=== PATIENT | female | born 2005 | race Caucasian/White ===

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

== ENCOUNTER 2025-01-01 06:51 | Day surgery (SDC) | payer OTHER, SELFPAY ==
[2025-01-01] VITALS (17 sets, daily range): BP systolic 92–157; BP diastolic 42–92; PULSE 60–92; RESP 17–20; TEMP 36.6–43; O2SAT 96–100; BMI 25.8
--- NOTE | 2025-01-01 06:59 | ED_ITS ---
Discharge Plan Disposition Chief Complaint: Abdominal Pain Prescriptions Prescriptions: No Action No Known Home Medications Referrals Follow up/Referrals: Provider,Referral, [Primary Care Provider] - See instructions Clinical Impressions Clinical Impression: Ovarian torsion Abdominal pain Qualifiers: Abdominal location: right lower quadrant Qualified Code(s): R10.31 - Right lower quadrant pain Instructions Patient Instructions: DI for Acute Abdominal Pain Print Language Print Language: Latvian Discharge ED Provider: Onel Shelton General Adult HPI General Chief complaint: Abdominal Pain Stated complaint: sharp pain in abd Time Seen by Provider: 01/01/25 06:57 Mode of Arrival: Ambulatory Source of Information: Patient Limitations: No Limitations History of Present Illness HPI narrative: This is a 19-year-old female with a history of complex right-sided ovarian cyst status post diagnostic laparoscopy on 04/27/2024 who presents with severe right lower quadrant and suprapubic abdominal pain. States that her pain began about 30 minutes ago while having intercourse with her boyfriend. Denies any vaginal bleeding. Reports dysuria. Reports nausea but denies vomiting. States that her pain is located to the right lower side and over her surgical incision around her umbilicus. Related Data Home Medications ?Medication ?Instructions ?Recorded ?Confirmed No Known Home Medications 01/01/25 01/01/25 Allergies Allergy/AdvReac Type Severity Reaction Status Date / Time amoxicillin Allergy Unknown Verified 01/01/25 07:23 allergy reaction hydromorphone (From Dilaudid) Allergy Difficulty Verified 04/27/24 08:01 Breathing morphine Allergy Unknown Verified 01/01/25 07:23 allergy reaction PFSH PFS Disclaimer: The information contained in this section may have been updated after the patient was seen, as this information can be updated by other users. Medical History (Updated 01/01/25 @ 09:37 by Lissy Bland DO) Acute abdominal pain in left lower quadrant Conversion disorder Abnormal uterine bleeding Right ovarian cyst RLQ abdominal pain Abdominal pain Pelvic pain Surgical History S/P laparoscopy History of surgery on arm History of tonsillectomy Family History Other No significant family history Social History Smoking Status: Current every day smoker tobacco type: e-cigarettes alcohol intake: never substance use type: denies use current occupational status: other Travel in the last 8 weeks: None Have you lived/traveled outside US in past 30 days?: No Contact w/someone who lives/traveled outside US past 30 days?: No Exposure to someone with infectious disease in past 14 days?: No Do you have a fever (greater than 100.4 F or 38 C)?: No Have you tested positive for COVID-19: No Exposed to someone with COVID-19 in past 14 days?: No Do you have a sore throat?: No Do you have a cough?: No Do you have any weakness?: No Do you have any diarrhea?: No Are you experiencing any unusual bleeding?: No Do you have any muscle aches/pain?: No Do you have any abdominal pain?: Yes Are you experiencing loss of taste or smell?: No Other Medical History Have you received the Flu Vaccine for this season: No Have you received the Pneumonia Vaccine: No ROS Obtained: Yes All systems reviewed & no additional complaints except as documented Physical Exam General General appearance: alert and in no apparent distress Eye Eye exam: Present normal appearance, PERRL and EOMI Respiratory Respiratory exam: Present normal lung sounds bilaterally; Absent respiratory distress Cardiovascular Cardiovascular exam: Present regular rate and normal rhythm Abdominal Exam Abdominal exam: Present soft and tenderness (Right lower quadrant, suprapubic); Absent distention, guarding or rebound Extremities Exam Extremities exam: Present normal inspection Neurological Exam Neurological exam: Present alert and oriented X3 Skin Skin exam: Present warm and dry Medical Decision Making Medical Records Medical records reviewed: Yes I reviewed the patient's medical records. Screening: Per USPSTF and CDC recommendations, given the prevalence of disease in our region, it is our hospital?s policy to screen for HIV and viral Hepatitis for all patients aged 18 and over and those with ongoing risk factors. MR Comment: Operative note and discharge summary from DIRECTOR PATIENT ACCOUNTING on 04/27/2024 notable for patient's past medical history as noted above. No evidence of torsion on exam. Normal flow on ultrasound prior to this. Emanuel Inquiry Pt receiving controlled substance: No Vital Signs: 01/01/25 07:15 01/01/25 08:29 01/01/25 08:41 Temperature 97.8 F 98.5 F 98.4 F Temperature Source Oral Oral Oral Pulse Rate 60 Pulse Rate [Radial] 71 61 Respiratory Rate 18 20 18 Blood Pressure 135/79 Blood Pressure [Right Arm] 107/77 L 144/92 H Blood Pressure Mean [Right Arm] 87 109 Blood Pressure Source [Right Arm] Automatic Cuff Blood Pressure Position Supine Blood Pressure Position [Right Arm] Sitting Supine 02 Sat by Pulse Oximetry 99 98 98 Oxygen Delivery Method Room Air Room Air Room Air 01/01/25 09:00 01/01/25 09:30 Temperature Temperature Source Pulse Rate 60 68 Pulse Rate [Radial] Respiratory Rate Blood Pressure 133/91 H 120/76 Blood Pressure [Right Arm] Blood Pressure Mean [Right Arm] Blood Pressure Source [Right Arm] Blood Pressure Position Blood Pressure Position [Right Arm] 02 Sat by Pulse Oximetry 99 99 Oxygen Delivery Method Room Air Room Air Lab Data Lab Results 01/01/25 07:12: WBC 7.5, RBC 4.38, Hgb 12.8, Hct 37.2, MCV 84.9, MCH 29.2, MCHC 34.4, RDW 12.6, Plt Count 309, MPV 10.0, Neut % (Auto) 43.8, Lymph % (Auto) 43.2, [place] % (Auto) 10.7 H, Eos % (Auto) 1.3, Baso % (Auto) 0.7, Neut # (Auto) 3.3, Lymph # (Auto) 3.2, [place] # (Auto) 0.8, Eos # (Auto) 0.1, Baso # (Auto) 0.1, Sodium 138, Potassium 4.1, Chloride 107, Carbon Dioxide 22, Anion Gap 13.1, BUN 10, Creatinine 0.50 L, Estimated Creat Clear 207, Estimated GFR 159, Est GFR ( Amer) 192, Glucose 98, Calcium 8.8, Total Bilirubin 0.4, AST 20, ALT 14, Alkaline Phosphatase 56, Total Protein 7.3, Albumin 4.4, Globulin 2.9, Albumin/Globulin Ratio 1.5, Lipase 43, Serum HCG, Qual Negative, HCV Ab GALLO w/Rflx PCR Qn Negative 01/01/25 07:12 01/01/25 07:12 Orders (Tests/Meds): ED MEDICATIONS Discontinued Medications Generic Name Dose Route Start Last Admin Trade Name Freq PRN Reason Stop Dose Admin Lactated Ringer's 500 mls @ 999 mls/hr 01/01/25 07:05 01/01/25 07:30 Lactated Ringer's 500ml IV 01/01/25 07:35 999 mls/hr .Q31M ONE Administration Ketorolac Tromethamine 15 mg 01/01/25 07:07 01/01/25 07:30 Ketorolac 30mg/Ml Vial IV 01/01/25 07:08 15 mg ONCE ONE Administration Morphine Sulfate 4 mg 01/01/25 08:32 01/01/25 08:38 Morphine 2mg/Ml Syringe IV 01/01/25 08:33 4 mg ONCE ONE Administration Morphine Sulfate 4 mg 01/01/25 09:33 01/01/25 09:38 Morphine 4mg/Ml Syringe IV 01/01/25 09:34 4 mg ONCE ONE Administration Ondansetron HCl 4 mg 01/01/25 07:05 01/01/25 07:31 Ondansetron 4mg/2ml Vial IV 01/01/25 07:06 4 mg ONCE ONE Administration ORDERS Category Date Time Status Type and Screen Stat BBK 01/01/25 09:15 Received US transvaginal Stat Exams 01/01/25 07:05 Completed CBC w/Auto Diff [Complete Blood Count Auto Diff] Stat Lab 01/01/25 07:12 Completed CMP [Comprehensive Metabolic Panel] Stat Lab 01/01/25 07:12 Completed HCG Qualitative, Serum Stat Lab 01/01/25 07:12 Completed HIV Combo Stat Lab 01/01/25 07:12 Received Hepatitis C Ab Qual. W/ RFX Stat Lab 01/01/25 07:12 Completed Lipase Stat Lab 01/01/25 07:12 Completed Urinalysis and Microscopic Stat Lab 01/01/25 07:50 Received Medical Decision Narrative: In summary, this 19-year-old female with a history of complex right-sided ovarian cyst status post diagnostic laparoscopy on 04/27/2024 presents to the emergency department today with right lower quadrant and suprapubic abdominal pain that began about 30 minutes prior to arrival. On initial evaluation patient is afebrile, hemodynamically stable, nontoxic-appearing, abdomen soft without peritoneal signs however tender to the right lower quadrant/suprapubic area. Differential diagnosis includes but is not limited to ovarian torsion, ectopic , appendicitis, UTI. Based on these concerns, I ordered CBC, CMP, lipase, qualitative beta-hCG, UA, transvaginal ultrasound. Considered CT scan with IV contrast, however will evaluate with ultrasound and laboratory workup first. Patient received 500 cc of lactated Ringer's, Toradol, Zofran for treatment. Labs personally reviewed demonstrate unremarkable CBC and CMP, normal lipase, negative test. UA shows []. TVUS personally interpreted demonstrates enlarged left ovary compared to right with ovarian cyst present. Measured at 52 cc compared to 6 cc on the right. No flow seen. Concerning for L sided torsion. Immediately consulted DIRECTOR PATIENT ACCOUNTING for evaluation for emergent surgical intervention. Taken to OR emergently. Critical Care Critical Care Time Critical Care Time: No
--- NOTE | 2025-01-01 07:05 | US_ITS ---
PROCEDURE INFORMATION: Exam: US Duplex Artery or Vein of the Abdominal and/or Reproductive Organs, Limited Ovaries Exam date and time: 01/01/2025 7:51 AM Age: 19 years old Clinical indication: Pelvic pain; Additional info: R/O torsion, rlq pain, HX R sided torsion last yr TECHNIQUE: Imaging protocol: Real-time duplex ultrasound scan of the arterial or venous flow with martinez scale, color Doppler flow and spectral waveform analysis with image documentation. Limited duplex exam focused on the ovaries. Duplex exam was performed to evaluate for torsion and other vascular conditions. COMPARISON: US TRANSVAGINAL 04/26/2024 3:19 PM FINDINGS: Right ovary/adnexa: Peak systolic velocity in the right ovary 12 cm/s. Left ovary/adnexa: No flow in the left ovary consistent with torsion.. IMPRESSION: 1. No flow in the left ovary consistent with torsion.. 2. Peak systolic velocity in the right ovary 12 cm/s. THIS REPORT CONTAINS FINDINGS THAT MAY BE CRITICAL TO PATIENT CARE. The findings were verbally communicated via telephone conference with DEL Dhillon at 859 AM EDT on 01/01/2025. The findings were acknowledged and understood. PROCEDURE INFORMATION: Exam: US Pelvis, Transvaginal, Non-Obstetric Exam date and time: 01/01/2025 7:51 AM Age: 19 years old Clinical indication: Pelvic pain; Additional info: R/O torsion, rlq pain, HX R sided torsion last yr TECHNIQUE: Imaging protocol: Real-time transvaginal pelvic (non-obstetric) ultrasound with image documentation. Transvaginal imaging was used for better evaluation of the endometrium, adnexa, and/or cervix. COMPARISON: US TRANSVAGINAL 04/26/2024 3:19 PM FINDINGS: Uterus: Endometrium measures 9.6 mm. Uterus 7.3 x 4.2 x 5.1 cm total volume 81 cc Right ovary/adnexa: Right ovary 2.9 x 2.3 x 1.7 cm total volume 6.1 cc Left ovary/adnexa: No flow in the left ovary consistent with torsion. Large hemorrhagic cyst contains low-level echoes in the left ovary.. It measures 4.07 x 4.7 x 4.1 cm.. Left ovary 5.6 x 4 x 4.4 cm total volume 52.6 cc Urinary bladder: Urinary bladder is limited. Intraperitoneal space: No free fluid. IMPRESSION: 1. No flow in the left ovary consistent with torsion. 2. Large hemorrhagic cyst contains low-level echoes in the left ovary.. It measures 4.07 x 4.7 x 4.1 cm..
[2025-01-01 07:20] LABS: Basophils # 0.1 K/mm3 (0-0.2); Basophils % 0.7 % (0.1-2.0); Eosinophils # 0.1 K/mm3 (0.0-0.4); Eosinophils % 1.3 % (0.1-12.0); Hematocrit 37.2 % (37.0-47.0); Hemoglobin 12.8 g/dL (12.2-16.2); Lymphocytes # 3.2 K/mm3 (0.7-4.5); Lymphocytes % 43.2 % (10-50); Mean Corpuscular HGB Conc 34.4 g/dL (31.8-35.4); Mean Corpuscular Hemoglobin 29.2 pg (27.0-31.2); Mean Corpuscular Volume 84.9 fl (81-99); Monocytes # 0.8 K/mm3 (0.1-1.0); Monocytes % 10.7 % (1.7-9.3); Neutrophils # 3.3 K/mm3 (1.8-7.8); Neutrophils % 43.8 % (37.0-80.0); Nucleated Red Blood Cells # 0 10^3/uL; Nucleated Red Blood Cells % 0 %; Platelet Count 309 K/mm3 (142-424); Red Blood Count 4.38 M/mm3 (4.20-5.40); Red Cell Distribution Width 12.6 % (11.5-17.5); Red Cell Distribution Width-SD 38.8 fL; White Blood Count 7.5 K/mm3 (4.5-13.0)
[2025-01-01 07:29] LABS: Albumin Level 4.4 g/dl (3.5-5.0); Chloride 107 mmol/L (98-107)
--- NOTE | 2025-01-01 07:29 | PC.NURSE ---
Patient attempted to urinate prior to arrival to treatment room. Patient states she was unable to void. Patient again encouraged prior to medication administration and again stated she could not go at this time. Informed the patient that we would need this specimen as soon as possible. Acknowledged understanding.
[2025-01-01 07:30] LABS: Potassium 4.1 mmoL/L (3.5-5.1); Sodium 138 mmol/L (136-145)
[2025-01-01] MEDS: KETOROLAC 30MG/ML VIAL 15 MG IV (07:30)
[2025-01-01] MEDS: RINGERS SOLUTION,LACTATED 500 ML 999 ML IV (07:30)
[2025-01-01] MEDS: ONDANSETRON 4MG/2ML VIAL 4 MG IV (07:31)
--- NOTE | 2025-01-01 07:31 | PC.NURSE ---
Ultrasound legal entity controller. Contacted via phone. Currently en route.
[2025-01-01 07:32] LABS: Alanine Aminotransferase 14 U/L (12-78); Anion Gap 13.1 mEq/L (5-15); Aspartate Amino Transferase 20 U/L (14-36); Blood Urea Nitrogen 10 mg/dl (7-17); Carbon Dioxide 22 mmol/L (22.0-30.0); Creatinine Clearance Estimated 207 mL/min (50-200); Estimated Glomerular Filt Rate 159 ml/min (>60); GFR (African American) 192 ML/MIN (>60)
[2025-01-01 07:33] LABS: Albumin/Globulin Ratio 1.5 (1.1-1.8); Alkaline Phosphatase 56 U/L (38-126); Bilirubin,Total 0.4 mg/dl (0.2-1.3); Calcium 8.8 mg/dl (8.4-10.2); Globulin 2.9 g/dL (1.3-3.2); Glucose 98 mg/dl (74-100); Total Protein,Serum 7.3 g/dl (6.3-8.2)
--- NOTE | 2025-01-01 07:52 | PC.NURSE ---
Patient encouraged to urinate. Patient stated she would attempt. Disconnected from V/S machine and IV fluids. Ambulated with smooth steady gait to restroom. Patient continues to guard her lower abdomen. Provider aware. Patient was able to provide specimen. Specimen sent to lab. Patient connected back to IV fluids and V/S machine. Offered another warm blanket. Patient declined. Voiced no other questions or concerns. Patient awaiting US.
[2025-01-01 07:56] LABS: Microscopic, Urine URINE MICROSCOPIC (MICROSCOPIC)
--- NOTE | 2025-01-01 07:56 | PC.NURSE ---
CBC and CMP reviewed by this nurse at this time.
--- NOTE | 2025-01-01 07:57 | PC.NURSE ---
Ultrasound arrived. Transporting patient to the US suite via wheelchair.
[2025-01-01 07:58] LABS: Appearance,Urine CLEAR (Clear); Bilirubin,Urine Negative (Negative); Blood, Urine Negative (Negative); Color,Urine YELLOW (Yellow); Glucose,Urine (UA) Negative (Negative); Ketones,Urine Negative (Negative); Leukocyte Esterase,Urine Negative (Negative); Nitrate,Urine Negative (Negative); Protein,Urine Negative (Negative); Specific Gravity, Urine 1.025 (1.005-1.030); Urobilinogen,Urine 0.2 EU/dl (0.2)
[2025-01-01 07:59] LABS: Lipase 43 U/L (23-300)
[2025-01-01 08:08] LABS: HCG Qualitative, Serum Negative (Negative)
--- NOTE | 2025-01-01 08:19 | PC.NURSE ---
Patient returned from US. Central Office Equipment Installer speaking with physician at this time.
--- NOTE | 2025-01-01 08:27 | PC.NURSE ---
dr damari birch
--- NOTE | 2025-01-01 08:31 | PC.NURSE ---
dr horton speaking with dr wetzel
[2025-01-01] MEDS: MORPHINE 2MG/ML SYRINGE 4 MG IV (08:38)
--- NOTE | 2025-01-01 08:38 | PC.NURSE ---
Patient with Morphine listed as an allergy within the medical record. Discussed with the provider. Per the provider, he discussed the incident with the patient and per her report, she did not have a reaction. Provider stated to administer the medication as ordered.
--- NOTE | 2025-01-01 08:51 | PC.NURSE ---
Patient's clothes removed with the exception of the patient's panties. Patient placed in a hospital gown. All jewelry removed and provided to the patient's friend Jemima Carey at the patient's request. Ms. Carey placed the patient's jewelry in the patient's wallet zipper pocket. Patient states her mother will be escorting her home after surgery. States her mother is currently on her way to the hospital.
--- NOTE | 2025-01-01 08:54 | PC.NURSE ---
dr waterman at bedside
[2025-01-01 08:57] LABS: Hepatitis C Ab Qual. W/ RFX NEGATIVE (Negative)
--- NOTE | 2025-01-01 08:57 | PC.NURSE ---
Laboratory called to do come complete the patient's Type & Screen.
--- NOTE | 2025-01-01 09:05 | PC.NURSE ---
obdulia made aware to call surgery team
--- NOTE | 2025-01-01 09:05 | PC.NURSE ---
OB states she wants to take the patient to the operating room. TJ, Communication Arts Lecturer made aware to call in the surgical team. Phlebotomy currently at bedside drawing Type & Screen.
--- NOTE | 2025-01-01 09:17 | P.HP_ITS ---
History of Present Illness *Admission Date: 01/01/25 *Reason for visit:: Acute, sudden onset abdominal pain *History of present illness: Ms Nella Nunez is a 19 yo P0000 who presented to the ED with sudden onset, acute abdominal pain. Pain is LLQ and suprapubic. She reports pain started immediately after intercourse, about 0600 this morning. She admits to associated nausea, no vomiting. No vaginal bleeding. Denies fever/chills. History of right ovarian cyst and severe pelvic pain in April 2024. She was taken to the OR for diagnostic laparoscopy. Small cysts were noted on the right ovary at that time as well as moderate amount of fluid in the pelvis. Pelvis was irrigated. Remaind er of findings were within normal limits. Pelvic ultrasound demonstrated normal appearing uterus and right ovary. Large hemorrhagic cyst contains low-level echoes in the left ovary.. It measures 4.07 x 4.7 x 4.1 cm.. Left ovary 5.6 x 4 x 4.4 cm total volume 52.6 cc. No flow in the left ovary consistent with torsion. She admits Toradol has offered some relief. [facility] Disclaimer: The information contained in this section may have been updated after the patient was seen, as this information can be updated by other users. Medical History (Updated 01/01/25 @ 09:37 by Lissy Bland DO) Acute abdominal pain in left lower quadrant Conversion disorder Abnormal uterine bleeding Right ovarian cyst RLQ abdominal pain Abdominal pain Pelvic pain Surgical History S/P laparoscopy History of surgery on arm History of tonsillectomy Family History Other No significant family history Social History Smoking Status: Current every day smoker tobacco type: e-cigarettes alcohol intake: never substance use type: denies use current occupational status: other Travel in the last 8 weeks: None Have you lived/traveled outside US in past 30 days?: No Contact w/someone who lives/traveled outside US past 30 days?: No Exposure to someone with infectious disease in past 14 days?: No Do you have a fever (greater than 100.4 F or 38 C)?: No Have you tested positive for COVID-19: No Exposed to someone with COVID-19 in past 14 days?: No Do you have a sore throat?: No Do you have a cough?: No Do you have any weakness?: No Do you have any diarrhea?: No Are you experiencing any unusual bleeding?: No Do you have any muscle aches/pain?: No Do you have any abdominal pain?: Yes Are you experiencing loss of taste or smell?: No Other Medical History Have you received the Flu Vaccine for this season: No Have you received the Pneumonia Vaccine: No Review of Systems Review of Systems Review of systems:: pertinent systems reviewed and negative unless documented below *Gastrointestinal Gastrointestinal: Reports abdominal pain and Reports nausea Meds Home Medications and Allergies Home Medications ?Medication ?Instructions ?Recorded ?Confirmed ?Type No Known Home Medications 01/01/25 01/01/25 History New Prescriptions to Start Prescriptions: Allergies Allergy/AdvReac Type Severity Reaction Status Date / Time amoxicillin Allergy Unknown Verified 01/01/25 07:23 allergy reaction hydromorphone (From Dilaudid) Allergy Difficulty Verified 04/27/24 08:01 Breathing morphine Allergy Unknown Verified 01/01/25 07:23 allergy reaction Exam Data for Last 24 hours Vital signs and Labs for Last 24 Hours: Temp Pulse Resp BP Pulse Ox O2 Del Method 98.4 F 61 18 144/92 H 98 Room Air 01/01/25 08:41 01/01/25 08:41 01/01/25 08:41 01/01/25 08:41 01/01/25 08:41 01/01/25 08:41 Laboratory Results - last 24 hr 01/01/25 07:12: WBC 7.5, RBC 4.38, Hgb 12.8, Hct 37.2, MCV 84.9, MCH 29.2, MCHC 34.4, RDW 12.6, Plt Count 309, MPV 10.0, Neut % (Auto) 43.8, Lymph % (Auto) 43.2, [place] % (Auto) 10.7 H, Eos % (Auto) 1.3, Baso % (Auto) 0.7, Neut # (Auto) 3.3, Lymph # (Auto) 3.2, [place] # (Auto) 0.8, Eos # (Auto) 0.1, Baso # (Auto) 0.1, Sodium 138, Potassium 4.1, Chloride 107, Carbon Dioxide 22, Anion Gap 13.1, BUN 10, Creatinine 0.50 L, Estimated Creat Clear 207, Estimated GFR 159, Est GFR (A frican Amer) 192, Glucose 98, Calcium 8.8, Total Bilirubin 0.4, AST 20, ALT 14, Alkaline Phosphatase 56, Total Protein 7.3, Albumin 4.4, Globulin 2.9, Albumin/Globulin Ratio 1.5, Lipase 43, Serum HCG, Qual Negative, HCV Ab GALLO w/Rflx PCR Qn Negative I & O for Last 24 hours: Intake & Output 12/29/24 12/30/24 12/31/24 01/01/25 23:59 23:59 23:59 23:59 Weight 160 lb Constitutional Constitutional: no acute distress and cooperative *Routine HEENT Exam Head: Present normocephalic and atraumatic Eye: Absent conjunctivae pink ENT: Present mucous membranes moist *Routine Neck Exam Neck: Present full ROM *Routine Respiratory Exam Respiratory: Present CTA bilaterally and normal respiratory effort *Routine Cardiovascular Exam Cardiovascular: Present RRR *Routine Abdominal Exam Abdominal: Present soft and tenderness (+ LLQ and suprapubic tenderness to light palpation); Absent distended or guarding *Routine Rectal Exam Rectal:: deferred *Routine Genitalia Exam Genitalia:: normal female *Routine Extremities Exam Extremities: Present full ROM; Absent edema or calf tenderness *Routine Neurological Exam Neurological: Present alert, moving all extremities and normal speech Routine Psychiatric Exam Psychiatric: Present normal affect and cooperative Assessment and Plan *Assessment and plan (1) Ovarian torsion: Status: Acute Category: Medical Code(s): N83.519 - Torsion of ovary and ovarian pedicle, unspecified side (2) Acute abdominal pain in left lower quadrant: Status: Acute Category: Medical Code(s): R10.32 - Left lower quadrant pain (3) Conversion disorder: Status: Acute Category: Medical Code(s): F44.9 - Dissociative and conversion disorder, unspecified Plan To OR for laparoscopy, possible left salpingo-oophorectomy, possible laparotomy, possible cystectomy Discussed surgery in detail. Discussed risks, benefits, alternatives, expecta tions and possible complications of surgery. Risks include but are not limited to bleeding; infection; damage to adjacent structures (bowel, bladder, nerves, blood vessels, etc) (possibly requiring further intervention and/or longer hospital stay); VTE; risks with anesthesia; and risk of . All questions addressed and answered. Patient voiced understanding of risks and possible complications. Patient desires to proceed with surgery. Consent form signed.
--- NOTE | 2025-01-01 09:32 | PC.NURSE ---
Patient asked to see nurse. Patient states she is having extreme abdominal pain. Patient rates her pain a 9/10. Dr. Shelton made aware. New orders given as entered by provider.
[2025-01-01] MEDS: MORPHINE 4MG/ML SYRINGE 4 MG IV (09:38)
--- NOTE | 2025-01-01 09:46 | PC.NURSE ---
Patient requested to ambulate to the restroom. Patient was disconnected from the V/S machine and fluids. Patient ambulated x1 minimal assistance to the restroom. Patient endorsed voiding. States, It hurt when I peed. I explained to the patient this was likely related to the ovarian torsion. I also explained that we use the muscles in close proximity to the injured ovary to urinate; this pressure would induce pain. Patient acknowledged understanding. Currently awaiting the arrival of the surgical team.
--- NOTE | 2025-01-01 10:08 | PC.NURSE ---
Surgery arrived to get the patient. Handoff was provided. Patient transported via a wheelchair with a member of the surgical team from the department. Care turned over at this time.
[2025-01-01 10:15] LABS: HIV Combo NEGATIVE (Negative)
--- NOTE | 2025-01-01 10:15 | EXP.ANES.CKL ---
[facility] Disclaimer: The information contained in this section may have been updated after the patient was seen, as this information can be updated by other users. Medical History Acute abdominal pain in left lower quadrant Conversion disorder Abnormal uterine bleeding Right ovarian cyst RLQ abdominal pain Abdominal pain Pelvic pain Surgical History S/P laparoscopy History of surgery on arm History of tonsillectomy Family History Other No significant family history Social History Smoking Status: Current every day smoker tobacco type: e-cigarettes alcohol intake: never substance use type: denies use current occupational status: other Travel in the last 8 weeks: None Have you lived/traveled outside [place] in past 30 days?: No Contact w/someone who lives/traveled outside US past 30 days?: No Exposure to someone with infectious disease in past 14 days?: No Do you have a fever (greater than 100.4 F or 38 C)?: No Have you tested positive for COVID-19: No Exposed to someone with COVID-19 in past 14 days?: No Do you have a sore throat?: No Do you have a cough?: No Do you have any weakness?: No Do you have any diarrhea?: No Are you experiencing any unusual bleeding?: No Do you have any muscle aches/pain?: No Do you have any abdominal pain?: Yes Are you experiencing loss of taste or smell?: No [facility] Anesthesia Checklist Patient Identification Patient Identification: Arm Band and Verbal (Name & ) Structural Data Admitted From: Home Planned Operative Procedure/s: diagnostic lap Consent for Planned Operative Procedure(s) Verified: Yes Verified Documents: Surgical Consent and History and Physical NPO Status Verified Time NPO: 00:00 Additional verifications Patient : No Anesthesia Reactions: No Airway Assessment Mallampati Score:: Class I Dentition: Good Dentition Neurological Assessment Level of Consciousness: Awake, Alert and Appropriate Anesthesia Plan Anesthesia Risk discussed: Yes Anesthesia Plan: Verified ASA Class: II Anesthesia Type: General
[2025-01-01 11:13] LABS: Squamous Epithelial Cell,Urine Occasional #/hpf (0-5)
[2025-01-01] MEDS: LIDOCAINE 1% W/EPI 1:100,000 20ML VIAL 20 ML (11:41)
--- NOTE | 2025-01-01 11:56 | P.OP_ITS ---
Date of procedure: 01/01/25 Pre-op Diagnosis:: 1. Acute abdominal pain 2. LLQ abdominal pain 3. Left ovarian torsion Post-op Diagnosis:: 1. Acute abdominal pain 2. LLQ abdominal pain 3. Left ruptured hemorrhagic cyst. No torsion. 4. Hemoperitoneum Procedure performed:: Laparoscopy, Surgeon:: Lissy Bland DO Hospital Product Specialist(s):: N/a THERAPEUTIC RECREATION LEADER:: Other ([place]) Anesthesia: GETA Estimated blood loss (mL): 10 Clinical Note:: Ms Nella Nunez is a 19 yo P0000 who presented to the ED with sudden onset, acute abdominal pain. Pain is LLQ and suprapubic. She reports pain started immediately after intercourse, about 0600 this morning. She admits to associated nausea, no vomiting. No vaginal bleeding. Denies fever/chills. History of right ovarian cyst and severe pelvic pain in April 2024. She was taken to the OR for diagnostic laparoscopy. Small cysts were noted on the right ovary at that time as well as moderate amount of fluid in the pelvis. Pelvis was irrigated. Remainder of findings were within normal limits. Pelvic ultrasound demonstrated normal appearing uterus and right ovary. Large hemorrhagic cyst contains low-level echoes in the left ovary.. It measures 4.07 x 4.7 x 4.1 cm.. Left ovary 5.6 x 4 x 4.4 cm total volume 52.6 cc. No flow in the left ovary consistent with torsion. Operative findings:: 1. On bimanual exam, uterus normal size and shape, midposition. Left adnexal fullness noted 2. On laparoscopic exam liver, gallbladder and bowel grossly normal. Uterus and bilateral fallopian tubes grossly normal. Right ovary appeared grossly normal. Left ovary NOT torsed but large bleeding rupture hemorrhagic cyst noted extending from normal appearing ovarian tissue. Moderate amount of blood in pelvis and posterior cul-de-sac. Oozing noted from rupture site of cyst. Operative note:: Risks, benefits and alternatives were discussed with the patient. Risks include but are not limited to bleeding, infection, damage to adjacent structures and VTE. Patient voiced understanding and agreed to proceed with surgery. She was wheeled back to the operating room and placed under general anesthesia without difficulty. She received Ancef 2 grams preoperatively. She was placed in the dorsal lithotomy position and prepped and draped in normal sterile fashion. A straight catheter was used to drain the bladder. A bimanual exam was performed. A weighted Auvard was placed in the vaginal vault. A single tooth tenaculum was placed on the anterior lip of the cervix. Regal manipulator was inserted into the cervical canal and attached to the tenaculum. Weighted Auvard was removed from the vagina. Attention was then drawn to the abdomen. A 1.5 cm infraumbilical incision was made. Veress needle was tested and inserted intraabdominally without difficulty. Opening pressure of 5 mm Hg. Abdomen was then insulflated to 15 mm Hg. Trocar was inserted through infraumbilical incision and laparoscope was inserted. Ab domen was viewed in its entirety. See findings above. Pictures were taken. Right lower quadrant was transilluminated. 5 mm incision was made and 5 mm disposable blunt trocar was inserted into the abdomen under direct laparoscopic visualization. Trocar was removed and sleeve was left in place. Pelvis was irrigated. Left lower quadrant was transilluminated. 5 mm incision was made and 5 mm disposable blunt trocar was inserted into the abdomen under direct laparoscopic visualization. Trocar was removed and sleeve was left in place. Ligasure was used to cauterize edges of ruptured cyst. Small amount of oozing noted. Pelvis was irrigated a second time. Surgicel powder applied to edges of ovarian cyst. Hemostasis noted. Left lower quadrant trocar was removed under direct laparoscopic visualization. Right lower quadrant trocar was removed under direct laparoscopic visualization. Pneumoperitoneum was released into the atmosphere. Infraumbilical trocar was removed under direct laparoscopic visualization to ensure no herniation of bowel or omentum. Skin incisions were closed with 3-0 Vicryl. Dermabond was applied over closed skin incisions. All instruments were removed from the vagina. Tenaculum site was noted to be hemostatic. Patient was cleaned and placed into the dorsal supine position. She awoke from anesthesia without difficulty. She was transported to the recovery room in st able condition. She was given instructions for discharge and to follow-up in the office in 2 weeks. Condition: stable Disposition: same day Specimens:: N/a Complications:: None
[2025-01-01] MEDS: SODIUM CHLORIDE IRRIG SOLUTION 3,000 ML 999 ML IR (12:06)
--- NOTE | 2025-01-01 12:07 | EXP.ANES.I ---
[facility] Anesthesia Record Part I Anesthesia Record I Intake, IV Amount: 800 Hydration: Adequate Estimated blood loss (mL): 10 Urine output (mL): 200 Blood Products used (#): none Blood Pressure: 157/67 SaO2: 99 Pulse Rate: 92 Airway Patency: Patent Respiratory Rate: 18 Temperature: 98.6 F Patient is:: Awake, Drowsy and Stable Stable to PACU at:: 12:12
[2025-01-01] MEDS: KETOROLAC 30MG/ML VIAL 30 MG IV (12:24)
--- NOTE | 2025-01-01 12:48 | EXP.DC.SUM ---
General Admission date:: 01/01/25 Discharge date: 01/01/25 HPI HPI HPI: Ms Nella Nunez is a 19 yo P0000 who presented to the ED with sudden onset, acute abdominal pain. Pain is LLQ and suprapubic. She reports pain started immediately after intercourse, about 0600 this morning. She admits to associated nausea, no vomiting. No vaginal bleeding. Denies fever/chills. History of right ovarian cyst and severe pelvic pain in April 2024. She was taken to the OR for diagnostic laparoscopy. Small cysts were noted on the right ovary at that time as well as moderate amount of fluid in the pelvis. Pelvis was irrigated. Remainder of findings were within normal limits. Pelvic ultrasound demonstrated normal appearing uterus and right ovary. Large hemorrhagic cyst contains low-level echoes in the left ovary.. It measures 4.07 x 4.7 x 4.1 cm.. Left ovary 5.6 x 4 x 4.4 cm total volume 52.6 cc. No flow in the left ovary consistent with torsion. She admits Toradol has offered some relief. Hospital Course Hospital Course Hospital Course: Ms Nella Nunez is a 19 yo P0000 who presented to the ED with sudden onset, acute abdominal pain. Pain is LLQ and suprapubic. She reports pain started immediately after intercourse, about 0600 this morning. She admits to associated nausea, no vomiting. No vaginal bleeding. Denies fever/chills. History of right ovarian cyst and severe pelvic pain in April 2024. She was taken to the OR for diagnostic laparoscopy. Small cysts were noted on the right ovary at that time as well as moderate amount of fluid in the pelvis. Pelvis was irrigated. Remainder of findings were within normal limits. Pelvic ultrasound demonstrated normal appearing uterus and right ovary. Large hemorrhagic cyst contains low-level echoes in the left ovary.. It measures 4.07 x 4.7 x 4.1 cm.. Left ovary 5.6 x 4 x 4.4 cm total volume 52.6 cc. No flow in the left ovary consistent with torsion. She received Morphine and Toradol in the ED with some relief of pain. She underwent diagnostic laparoscopy, irrigation of pelvis, cauterization of ruptured cyst edges on 01/01/25. She was given instructions for discharge and to follow-up in the office in 2 weeks. Exam Data for Last 24 hours Vital signs and Labs for Last 24 Hours: Temp Pulse Resp BP Pulse Ox O2 Del Method O2 Flow Rate 98.6 F 73 17 99/42 L 99 Room Air 2 01/01/25 12:08 01/01/25 12:43 01/01/25 12:43 01/01/25 12:43 01/01/25 12:43 01/01/25 12:43 01/01/25 12:32 Laboratory Results - last 24 hr 01/01/25 07:12: WBC 7.5, RBC 4.38, Hgb 12.8, Hct 37.2, MCV 84.9, MCH 29.2, MCHC 34.4, RDW 12.6, Plt Count 309, MPV 10.0, Neut % (Auto) 43.8, Lymph % (Auto) 43.2, [place] % (Auto) 10.7 H, Eos % (Auto) 1.3, Baso % (Auto) 0.7, Neut # (Auto) 3.3, Lymph # (Auto) 3.2, [place] # (Auto) 0.8, Eos # (Auto) 0.1, Baso # (Auto) 0.1, Sodium 138, Potassium 4.1, Chloride 107, Carbon Dioxide 22, Anion Gap 13.1, BUN 10, Creatinine 0.50 L, Estimated Creat Clear 207, Estimated GFR 159, Est GFR ( Amer) 192, Glucose 98, Calcium 8.8, Total Bilirubin 0.4, AST 20, ALT 14, Alkaline Phosphatase 56, Total Protein 7.3, Albumin 4.4, Globulin 2.9, Albumin/Globulin Ratio 1.5, Lipase 43, Serum HCG, Qual Negative, HCV Ab GALLO w/Rflx PCR Qn Negative, HIV Ag/Ab Combo Qual Negative 01/01/25 07:50: Urine Color Yellow, Urine Appearance Clear, Urine pH 6.0, Ur Specific [place] 1.025, Urine Protein Negative, Urine Glucose (UA) Negative, Urine Ketones Negative, Urine Blood Negative, Urine Nitrate Negative, Urine Bilirubin Negative, Urine Urobilinogen 0.2, Ur Leukocyte Esterase Negative, Urine RBC None, Urine WBC None, Ur Squamous Epith Cells Occasional 01/01/25 09:15: Blood Type O Positive, Antibody Screen Negative I & O for Last 24 hours: Intake & Output 12/29/24 12/30/24 12/31/24 01/01/25 23:59 23:59 23:59 23:59 Intake Total 800 / 800 Balance 800 / 800 Weight 160 lb Constitutional Constitutional: no acute distress and cooperative *Routine HEENT Exam Head: Present normocephalic and atraumatic Eye: Absent conjunctivae pink ENT: Present mucous membranes moist *Routine Neck Exam Neck: Present full ROM *Routine Respiratory Exam Respiratory: Present CTA bilaterally and normal respiratory effort *Routine Cardiovascular Exam Cardiovascular: Present RRR *Routine Abdominal Exam Abdominal: Present soft; Absent distended or rebound *Routine Rectal Exam Patient deferred: visual exam *Routine Exam Patient deferred: external exam *Routine Extremities Exam Extremities: Present full ROM; Absent edema or calf tenderness *Routine Neurological Exam Neurological: Present alert, moving all extremities and normal speech Routine Psychiatric Exam Psychiatric: Present normal affect and cooperative Results Data Completed and Pending Labs on day of discharge: Labs from last 24 hours 01/01/25 01/01/25 01/01/25 09:15 07:50 07:12 WBC 7.5 RBC 4.38 Hgb 12.8 Hct 37.2 MCV 84.9 MCH 29.2 MCHC 34.4 RDW 12.6 Plt Count 309 MPV 10.0 Neut % (Auto) 43.8 Lymph % (Auto) 43.2 [place] % (Auto) 10.7 H Eos % (Auto) 1.3 Baso % (Auto) 0.7 Neut # (Auto) 3.3 Lymph # (Auto) 3.2 [place] # (Auto) 0.8 Eos # (Auto) 0.1 Baso # (Auto) 0.1 Sodium 138 Potassium 4.1 Chloride 107 Carbon Dioxide 22 Anion Gap 13.1 BUN 10 Creatinine 0.50 L Estimated Creat Clear 207 Estimated GFR 159 Est GFR ( Amer) 192 Glucose 98 Calcium 8.8 Total Bilirubin 0.4 AST 20 ALT 14 Alkaline Phosphatase 56 Total Protein 7.3 Albumin 4.4 Globulin 2.9 Albumin/Globulin Ratio 1.5 Lipase 43 Serum HCG, Qual Negative Urine Color Yellow Urine Appearance Clear Urine pH 6.0 Ur Specific [place] 1.025 Urine Protein Negative Urine Glucose (UA) Negative Urine Ketones Negative Urine Blood Negative Urine Nitrate Negative Urine Bilirubin Negative Urine Urobilinogen 0.2 Ur Leukocyte Esterase Negative Urine RBC None Urine WBC None Ur Squamous Epith Cells Occasional HCV Ab GALLO w/Rflx PCR Qn Negative HIV Ag/Ab Combo Qual Negative Blood Type O Positive Antibody Screen Negative DS: Diagnosis Discharge Diagnosis (1) Ovarian torsion: Status: Acute Code(s): N83.519 - Torsion of ovary and ovarian pedicle, unspecified side (2) Acute abdominal pain in left lower quadrant: Status: Acute Code(s): R10.32 - Left lower quadrant pain (3) Conversion disorder: Status: Acute Code(s): F44.9 - Dissociative and conversion disorder, unspecified (4) Hemorrhagic cyst of left ovary: Status: Acute Code(s): N83.202 - Unspecified ovarian cyst, left side Meds Home Medications and Allergies Home Medications ?Medication ?Instructions ?Recorded ?Confirmed ?Type hydrocodone 5 mg-acetaminophen 325 1 tab PO Q6H PRN pain #16 tabs 01/01/25 Rx mg tablet ibuprofen 800 mg tablet 800 mg PO Q8H PRN pain #20 tabs 01/01/25 Rx New Prescriptions to Start Prescriptions: hydrocodone-acetaminophen Lissy Bland ibuprofen Lissy Bland Allergies Allergy/AdvReac Type Severity Reaction Status Date / Time amoxicillin Allergy Unknown Verified 01/01/25 07:23 allergy reaction hydromorphone (From Dilaudid) Allergy Difficulty Verified 04/27/24 08:01 Breathing morphine Allergy Unknown Verified 01/01/25 07:23 allergy reaction Discharge Plan Disposition Patient Disposition: Home, Self-Care Follow up Plan Follow up with: Lissy Bland DO [Staff Physician] - 2 weeks Provider,Referral, [Primary Care Provider] - See instructions Prescriptions/Medication Reconciliation: New ibuprofen 800 mg tablet 800 mg PO Q8H PRN (Reason: pain) Qty: 20 0RF hydrocodone-acetaminophen 5-325 mg tablet 1 tab PO Q6H PRN (Reason: pain) Qty: 16 0RF Patient Discharge Instructions ACTIVITY: Limited activity DIET: continue same diet and regular diet Additional Instructions/Restrictions: Discharge: 1. Take 800 mg Ibuprofen every 8 hours as needed for pain. You can also take [place] 5-325 mg every 6 hours or more has needed for severe pain 2. Nothing in the vagina for 2 weeks - no intercourse, douching or tampons. No tub baths/hot tubs or swimming pools 3. Reasons to call On-Call doctor - fever (greater than 100.4) - heavy vaginal bleeding (soaking through 1 pad in less than 2 hours) - vaginal discharge (malodorous and/or purulent) Lissy Bland DO [facility] [phone] Patient Instructions: DI for Acute Abdominal Pain, Surgical Site Infection Providers Primary Care Provider: Provider,Referral Attending Provider: Lissy Bland
[2025-01-01] MEDS: MIDAZOLAM 2MG/2ML VIAL 2 MG IV (12:50)
[2025-01-01] MEDS: HYDROCODONE/APAP 5/325 MG TABLET 1 TAB PO (13:28)
--- NOTE | 2025-01-01 14:03 | SUR.PHASEII ---
pt given warm blanket to use as heating pad for abd. pain, emesis bag given for ride home. pt continues to complain of abdominal pain, pt given 1st dose of norco in post op phase. VSS throughout entire phase 1 and 2. Pt sipping on graciela homar and eating ice chips before discharge. discharged pt with mother, when attempting to help put seat belt on, mother stated don't put that on her, it will hurt too bad.
--- NOTE | 2025-01-02 14:45 | EXP.ANES.II ---
[facility] Anesthesia Record Part II Anesthesia Record Part II Discharge Time: 12:32 Destination: Surgical Day Care (OP Surgery) PACU nurse assessment reviewed?: Yes Patient Condition:: Good Anesthesia Complications:: None Swallowing reflex intact?: Yes Airway Patency: Patent Cyanosis?: No Blood Pressure: 102/68 SaO2: 99 Respiratory Rate: 18 Pulse Rate: 76 Temperature: 98.6 F Mental Status: Alert & Oriented Pain level:: 0 Nausea and/or vomitting:: None Intake, IV Amount: 0 Hydration: Adequate
[2025-01-02 14:48] VITALS: BP 102/68; PULSE 76; RESP 18; TEMP 37; O2SAT 99
== END 2025-01-01 14:03 | disposition home or self-care (01) ==
LOC: ER 09:50 → SDC 10:18
PROVIDERS: Emergency Provider Student in an Organized Health Care Education/Training Program; Visit Provider Obstetrics & Gynecology
PROC: (CPT 49320; principal; 2025-01-01 10:15)
DX: N83.202 Unspecified ovarian cyst, left side (principal); K66.1 Hemoperitoneum; R10.32 Left lower quadrant pain; F44.9 Dissociative and conversion disorder, unspecified
CPT/HCPCS: 49322; 58662; 36415; 76830; 80053; 81001; 83690; 84703; 85025; 86803; 86850; 87389; 99285; J1100; J1200; J1885; J2250; J2270; J2405; J3010; J7120

== ENCOUNTER 2025-01-01 23:07 | Emergency (ER) | payer OTHER, SELFPAY ==
--- NOTE | 2025-01-01 23:11 | HMH.EDGENADL ---
Discharge Plan Disposition Patient Disposition: Home, Self-Care Prescriptions Prescriptions: New methocarbamol 500 mg tablet 1,000 mg PO Q6H PRN (Reason: pain) Qty: 30 0RF No Action ibuprofen 800 mg tablet 800 mg PO Q8H PRN (Reason: pain) Qty: 20 0RF hydrocodone-acetaminophen 5-325 mg tablet 1 tab PO Q6H PRN (Reason: pain) Qty: 16 0RF Referrals Follow up/Referrals: Provider,Referral, MD [Primary Care Provider] - See instructions Activity Restrictions/Add. Instructions Additional Instructions/Restrictions: Please follow-up with your primary care provider. Please return to the emergency department if you develop any new or worsening symptoms or become concerned for your health. Clinical Impressions Clinical Impression: S/P laparoscopy Abdominal pain Qualifiers: Abdominal location: generalized Qualified Code(s): R10.84 - Generalized abdominal pain Instructions Patient Instructions: DI for Acute Abdominal Pain Print Language Print Language: Senegalese Discharge ED Provider: Maximo Desai General Adult HPI General Chief complaint: Abdominal Pain Stated complaint: abdominal pain Time Seen by Provider: 01/01/25 23:11 History of Present Illness HPI narrative: 19-year-old female with history of diagnostic laparotomy today presents for worsening abdominal pain. She was seen here this morning in her ER with severe left lower quadrant pain and on transvaginal ultrasound was noted to have cyst on the left ovary and no flow noted. She was taken for diagnostic laparotomy where the ovary was normal in appearance with the exception of hemorrhagic cysts. The cysts were removed and the patient was closed. Patient was discharged later that day. She went home and when her medications started wearing off she started having more severe pain. She reports her pain is much worse than it was before her surgery currently. She reports some pain with peeing as well. Related Data Previous Rx's ?Medication ?Instructions ?Recorded hydrocodone 5 mg-acetaminophen 325 1 tab PO Q6H PRN pain #16 tabs 01/01/25 mg tablet ibuprofen 800 mg tablet 800 mg PO Q8H PRN pain #20 tabs 01/01/25 methocarbamol 500 mg tablet 1,000 mg (2 x 500 mg) PO Q6H PRN 01/02/25 pain #30 tabs Allergies Allergy/AdvReac Type Severity Reaction Status Date / Time amoxicillin Allergy Unknown Verified 01/01/25 07:23 allergy reaction hydromorphone (From Dilaudid) Allergy Difficulty Verified 04/27/24 08:01 Breathing morphine Allergy Unknown Verified 01/01/25 07:23 allergy reaction PFSH [facility] Disclaimer: The information contained in this section may have been updated after the patient was seen, as this information can be updated by other users. Medical History (Updated 01/02/25 @ 01:04 by Maximo Desai MD) Hemorrhagic cyst of left ovary Acute abdominal pain in left lower quadrant Conversion disorder Abnormal uterine bleeding Right ovarian cyst RLQ abdominal pain Abdominal pain Pelvic pain Surgical History (Updated 01/02/25 @ 01:04 by Maximo Desai MD) S/P laparoscopy History of surgery on arm History of tonsillectomy Family History Other No significant family history Social History Smoking Status: Current every day smoker tobacco type: e-cigarettes alcohol intake: never substance use type: denies use current occupational status: other Travel in the last 8 weeks: None Have you lived/traveled outside [place] in past 30 days?: No Contact w/someone who lives/traveled outside US past 30 days?: No Exposure to someone with infectious disease in past 14 days?: No Do you have a fever (greater than 100.4 F or 38 C)?: No Have you tested positive for COVID-19: No Exposed to someone with COVID-19 in past 14 days?: No Do you have a sore throat?: No Do you have a cough?: No Do you have any weakness?: No Do you have any diarrhea?: No Are you experiencing any unusual bleeding?: No Do you have any muscle aches/pain?: No Do you have any abdominal pain?: No Are you experiencing loss of taste or smell?: No Other Medical History Have you received the Flu Vaccine for this season: No Have you received the Pneumonia Vaccine: No ROS Obtained: Yes All systems reviewed & no additional complaints except as documented Physical Exam General General appearance: alert and in no apparent distress Head Head exam: atraumatic and normocephalic Eye Eye exam: Present normal appearance, PERRL and EOMI ENT ENT exam: Present normal oropharynx and normal external ear exam Neck Neck exam: Present normal inspection and full ROM Chest Chest inspection: Present normal inspection and symmetric chest wall rise; Absent tenderness Respiratory Respiratory exam: Present normal lung sounds bilaterally; Absent respiratory distress Cardiovascular Cardiovascular exam: Present regular rate and normal rhythm Abdominal Exam Abdominal exam: Present soft and tenderness (Diffusely tender with guarding, no rigidity); Absent distention or guarding Extremities Exam Extremities exam: Present normal inspection; Absent edema or joint swelling Back Exam Back exam: Present normal inspection; Absent tenderness Neurological Exam Neurological exam: Present alert and oriented X3; Absent motor sensory deficit Psychiatric Psychiatric exam: Present normal affect and normal mood Skin Skin exam: Present warm, dry and normal color Lymphatic Lymphatic Findings: no adenopathy Medical Decision Making Medical Records Medical records reviewed: Yes I reviewed the patient's medical records. Screening: Per USPSTF and CDC recommendations, given the prevalence of disease in our region, it is our hospital?s policy to screen for HIV and viral Hepatitis for all patients aged 18 and over and those with ongoing risk factors. Emanuel Inquiry Pt receiving controlled substance: No Emanuel was queried for this patient: No Vital Signs: 01/01/25 23:14 01/02/25 01:34 Temperature 98.1 F 98.0 F Temperature Source Oral Oral Pulse Rate 52 L Pulse Rate [Right Radial] 77 Respiratory Rate 16 14 Blood Pressure 103/59 L Blood Pressure [Right Arm] 127/82 Blood Pressure Mean [Right Arm] 97 Blood Pressure Source Automatic Cuff Blood Pressure Position Supine Blood Pressure Position [Right Arm] Sitting 02 Sat by Pulse Oximetry 95 Oxygen Delivery Method Room Air Room Air Lab Data Lab results reviewed: Yes I reviewed the patient's lab results. Lab Results 01/01/25 00:40: WBC 12.1, RBC 3.98 L, Hgb 11.5 L, Hct 33.9 L, MCV 85.2, MCH 28.9, MCHC 33.9, RDW 12.5, Plt Count 209, MPV 10.1, Neut % (Auto) 78.3, Lymph % (Auto) 12.4, [place] % (Auto) 8.8, Eos % (Auto) 0.0 L, Baso % (Auto) 0.2, Neut # (Auto) 9.5 H, Lymph # (Auto) 1.5, [place] # (Auto) 1.1 H, Eos # (Auto) 0.0, Baso # (Auto) 0.0, Sodium 132 L, Potassium 3.8, Chloride 101, Carbon Dioxide 15 L, Anion Gap 19.8 H, BUN 7, Creatinine 0.50 L, Estimated Creat Clear 207, Estimated GFR 159, Est GFR ( Amer) 192, Glucose 89, Calcium 8.6, Total Bilirubin 0.8, AST 17, ALT 15, Alkaline Phosphatase 51, Total Protein 6.6, Albumin 3.7, Globulin 2.9, Albumin/Globulin Ratio 1.3, Lipase 37 01/01/25 00:40 01/01/25 00:40 Orders (Tests/Meds): ED MEDICATIONS Discontinued Medications Generic Name Dose Route Start Last Admin Trade Name Freq PRN Reason Stop Dose Admin Iopamidol 75 ml 01/01/25 23:59 01/02/25 00:01 Iopamidol-370 (76%);100ml Bottle IV 01/02/25 00:00 75 ml ONCE ONE Administration Methocarbamol 1,000 mg 01/02/25 00:36 01/02/25 00:39 Methocarbamol 500mg Tablet PO 01/02/25 00:37 1,000 mg ONCE ONE Administration Sodium Chloride 10 ml 01/01/25 23:59 01/02/25 00:00 Sodium Chloride 0.9% 10ml Syr (Rad Only) IV 01/31/25 23:58 10 ml NEEDED PRN Administration Maintain IV Site ORDERS Category Date Time Status CT abdomen pelvis w con Stat Cat Scan 01/01/25 23:24 Completed US transvaginal Routine Exams 01/02/25 Completed CBC w/Auto Diff [Complete Blood Count Auto Diff] Stat Lab 01/01/25 00:40 Completed CMP [Comprehensive Metabolic Panel] Stat Lab 01/01/25 00:40 Completed Lipase Stat Lab 01/01/25 00:40 Completed Medical Decision Narrative: 19-year-old female with diagnostic laparotomy today for hemorrhagic cyst presents for worsening abdominal pain.. History was obtained via interactive discussion with patient, chart review. On arrival, patient is [afebrile, hemodynamically stable, satting appropriately, alert, oriented x4, GCS 15], moving all extremities spontaneously. Full physical exam performed and significant for generalized abdominal tenderness with guarding. I briefly discussed the case with Dr. Stevens as well. Differential includes but is not limited to expected postoperative pain in the setting of diagnostic laparotomy, hemorrhagic cyst. Could also be postoperative complication such as bowel perforation or possibly recurrent torsion. Patient was given Tylenol and oxycodone at home and fentanyl with EMS for symptomatic management and correction of underlying abnormalities. Workup initiated including CBC CMP CT abdomen pelvis with IV contrast transvaginal ultrasound to assess for torsion.. On re-evaluation, patient [remains afebrile, HD stable.] Laboratory workup independently interpreted by me and significant for no significant change from preop labs.. Imaging independently interpreted by me and significant for CT imaging with expected gas in the abdomen and fluid within the pelvis. No other significant abnormalities noted. Transvaginal ultrasound shows good flow to both ovaries with mild pelvic free fluid.. See radiology read for full review of final results. Given patient history, exam and workup, patient's presentation most likely represents multifactorial postoperative pain without recurrent torsion, no evidence of surgical complication on CT scan at this point. Patient was given Robaxin for pain. Interact discussion with outpatient regarding her presentation and expectations regarding her pain. She is discharged in stable condition with return precautions. Procedures Risk/Benefits of Procedure(s) Were Explained: Yes Critical Care Critical Care Time Critical Care Time: No
[2025-01-01 23:14] VITALS: BP 127/82; PULSE 77; RESP 16; TEMP 36.7; O2SAT 95; BMI 27.4
--- NOTE | 2025-01-01 23:24 | CT_ITS ---
PROCEDURE INFORMATION: Exam: CT Abdomen And Pelvis With Contrast Exam date and time: 01/01/2025 11:49 PM Age: 19 years old Clinical indication: Abdominal pain; Prior surgery; Surgery date: Post-operative (0-2 days); Surgery type: Lap for cyst today; Additional info: Severe abd pain, HX dx lap for cyst today TECHNIQUE: Imaging protocol: Computed tomography of the abdomen and pelvis with contrast. Radiation optimization: All CT scans at this facility use at least one of these dose optimization techniques: automated exposure control; mA and/or kV adjustment per patient size (includes targeted exams where dose is matched to clinical indication); or iterative reconstruction. Contrast material: ISOVUE; Contrast volume: 75 ml; Contrast route: IV; COMPARISON: US TRANSVAGINAL 01/01/2025 7:51 AM FINDINGS: Liver: 1.2 cm cyst in the right lobe of the liver. Gallbladder and biliary ducts: Normal. No calcified stones. No ductal dilation. Pancreas: Normal. No ductal dilation. Spleen: Normal. No splenomegaly. Adrenal glands: Normal. No mass. Kidneys and ureters: Normal. No hydronephrosis. Stomach and bowel: Constipation. No colitis. No small bowel obstruction Appendix: No evidence of appendicitis. Intraperitoneal space: Small amount of free air in the anterior abdomen likely due to recent intervention. Trace free fluid in the pelvis Vasculature: Unremarkable. No abdominal aortic aneurysm. Lymph nodes: Unremarkable. No enlarged lymph nodes. Urinary bladder: Unremarkable as visualized. Reproductive: Unremarkable as visualized. Bones/joints: Unremarkable. No acute fracture. Soft tissues: Unremarkable. IMPRESSION: 1. Mild free fluid in pelvis 2. Mild free air in the abdomen likely due to recent intervention
[2025-01-02] MEDS: SODIUM CHLORIDE 0.9% 10ML SYR (RAD ONLY) 10 ML IV
--- NOTE | 2025-01-02 | US_ITS ---
PROCEDURE INFORMATION: Exam: US Pelvis, Transvaginal, Non-Obstetric Exam date and time: 01/02/2025 12:00 AM Age: 19 years old Clinical indication: Pelvic pain; Prior surgery; Surgery date: Post-operative (0-2 days); Surgery type: Lap for cyst today; Additional info: Abd pain -- lap for cyst today TECHNIQUE: Imaging protocol: Real-time transvaginal pelvic (non-obstetric) ultrasound with image documentation. Transvaginal imaging was used for better evaluation of the endometrium, adnexa, and/or cervix. COMPARISON: US TRANSVAGINAL 01/01/2025 7:51 AM FINDINGS: Uterus: Uterus is anteverted. Endometrial stripe is slightly thickened. Uterus measures 7 x 3.7 x 4.7 cm. Endometrial stripe 0.87 cm. Right ovary/adnexa: Multiple normal follicular cysts. No mass. Normal ovarian blood flow on color Doppler. Right ovary measures 3.4 x 2.5 x 2.7 cm Left ovary/adnexa: Multiple normal follicular cysts. No mass. Normal ovarian blood flow on color Doppler. Left ovary measures 4.5 x 3.8 x 2.1 cm Urinary bladder: Urinary bladder is limited. Intraperitoneal space: Trace free fluid. IMPRESSION: Trace free fluid in the pelvis otherwise unremarkable pelvic ultrasound
[2025-01-02] MEDS: IOPAMIDOL-370 (76%);100ML BOTTLE 75 ML IV (00:01)
[2025-01-02] MEDS: METHOCARBAMOL 500MG TABLET 1000 MG PO (00:39)
[2025-01-02 00:45] LABS: Basophils % 0.2 % (0.1-2.0); Hematocrit 33.9 % (37.0-47.0); Hemoglobin 11.5 g/dL (12.2-16.2); Lymphocytes # 1.5 K/mm3 (0.7-4.5); Lymphocytes % 12.4 % (10-50); Mean Corpuscular HGB Conc 33.9 g/dL (31.8-35.4); Mean Corpuscular Hemoglobin 28.9 pg (27.0-31.2); Mean Corpuscular Volume 85.2 fl (81-99); Mean Platelet Volume 10.1 fl (7.4-10.4); Monocytes # 1.1 K/mm3 (0.1-1.0); Monocytes % 8.8 % (1.7-9.3); Neutrophils # 9.5 K/mm3 (1.8-7.8); Neutrophils % 78.3 % (37.0-80.0); Nucleated Red Blood Cells # 0 10^3/uL; Nucleated Red Blood Cells % 0 %; Platelet Count 209 K/mm3 (142-424); Red Blood Count 3.98 M/mm3 (4.20-5.40); Red Cell Distribution Width 12.5 % (11.5-17.5); Red Cell Distribution Width-SD 38.9 fL; White Blood Count 12.1 K/mm3 (4.5-13.0)
[2025-01-02 00:55] LABS: Alanine Aminotransferase 15 U/L (12-78); Albumin Level 3.7 g/dl (3.5-5.0); Albumin/Globulin Ratio 1.3 (1.1-1.8); Alkaline Phosphatase 51 U/L (38-126); Anion Gap 19.8 mEq/L (5-15); Aspartate Amino Transferase 17 U/L (14-36); Bilirubin,Total 0.8 mg/dl (0.2-1.3); Blood Urea Nitrogen 7 mg/dl (7-17); Calcium 8.6 mg/dl (8.4-10.2); Carbon Dioxide 15 mmol/L (22.0-30.0); Chloride 101 mmol/L (98-107); Creatinine Clearance Estimated 207 mL/min (50-200); Estimated Glomerular Filt Rate 159 ml/min (>60); GFR (African American) 192 ML/MIN (>60); Globulin 2.9 g/dL (1.3-3.2); Glucose 89 mg/dl (74-100); Lipase 37 U/L (23-300); Potassium 3.8 mmoL/L (3.5-5.1); Sodium 132 mmol/L (136-145); Total Protein,Serum 6.6 g/dl (6.3-8.2)
[2025-01-02 01:34] VITALS: BP 103/59; PULSE 52; RESP 14; TEMP 36.7; O2SAT 99
== END 2025-01-02 01:43 | disposition home or self-care (01) ==
PROVIDERS: Emergency Provider Emergency Medicine
DX: R10.84 Generalized abdominal pain (principal); G89.18 Other acute postprocedural pain
CPT/HCPCS: 99285; 74177; 76830; 80053; 83690; 85025; Q9967

== ENCOUNTER 2025-05-23 08:51 | Emergency (ER) | payer SELFPAY ==
--- OUTSIDE RECORDS SUMMARY | 2023-03-31 08:37 | XMS_ITS | Continuity of Care Document ---
Author Organization [facility] Address [address] [place] [address] Phone Care Team Providers Care Deck Lid Fitter Name Role Phone Elayne Brown Unavailable Unavailable Allergies, Adverse Reactions, Alerts Substance Reaction Status Criticality poison leonides extract Active No Inform ation Medications Medication Instructions Dosage Effective Dates (start - stop) Status Comments ALBUTEROL SULF 90MCG HFA INHALE ONE PUFF BY MOUTH EVERY FOUR HOURS - ADMINISTER WITH SPACER NEEDED FOR SHORNTESS OF BREATH OR WHEEZING. - Active prednisone 10 mg tablet 3 po x 3 day, 2 po x3days, 1 po x 3 day. - Active Space Chamber Plus use with albuterol inhaler - Active Needs one for school and one for home meloxicam 7.5 mg tablet take one tablet daily as needed - Active Claritin 10 mg tablet 1 tablet by oral route every day prn allergy symptoms as needed - Active albuterol sulfate 2.5 mg/3 mL (0.083 %) solution for nebulization Use 3mL by nebulized route every 4-6 hours as needed for cough, shortness of breath or wheezing - Active loratadine 10 mg tablet 1 tablet by Oral route every day - Active Procedures Procedure Date PREV.VISIT/EST. 12-17 YRS Medication Reviewed TOBACCO NON-USER PHQ2 Negative OFFICE VISIT/EST LEVEL III Medication Reviewed PREV.VISIT/EST. 12-17 YRS Medication Reviewed TOBACCO NON-USER Immunization Admin 1st Vaccine 18 MENING VACCINE (1) (S) Immunization Admin 1st Vaccine 18 TDAP (7+Yrs) (3) (SV) Immunization Admin 1st Vaccine 18 HEP A VAC PED/ADOL, 2 DOSE Series (SV) J OFFICE VISIT/EST LEVEL III Medication Reviewed PHQ2 Negative PREV.VISIT/EST. 12-17 YRS Medication Reviewed OFFICE VISIT/EST LEVEL III Medication Reviewed OFFICE VISIT/EST LEVEL III Medication Reviewed RACH/PRESUMPTIVE C-REACTIVE PROTEIN (CRP) SED.RATE/AUTOMATED (Offsite) T-4 FREE TSH OFFICE VISIT/EST LEVEL IV OFFICE VISIT/EST LEVEL III CBC W/DIFF. METABOLIC PANEL: CHEM 19 GLYCOHEMOGLOBIN(A1C) TSH PREV.VISIT/EST. 5-11 YRS QUICK STREP OFFICE VISIT/EST LEVEL III OFFICE VISIT/EST LEVEL III Health History Update CHILD PROPHYLAXIS(Under 14) PANORAMIC FILM BITEWIN FILMS TOPICAL APPL OF FLUORIDE ORAL HYGIENE INSTRUCTIONS NUTRITIONAL COUNSELING COMPR ORAL EVAL:NEW/EST Planned Tx Completed URINE DIP OFFICE VISIT/EST LEVEL III URINE CULTURE OFFICE VISIT/EST LEVEL III QUICK STREP OFFICE VISIT/EST LEVEL III OFFICE VISIT/EST LEVEL III URINE DIP URINE CULTURE PREV.VISIT/EST. 5-11 YRS IMMUNIZATION ADM/SNGL Flu Quad; MultiDose 3+ Yrs (S) 16 QUICK STREP OFFICE VISIT/EST LEVEL III OFFICE VISIT/EST LEVEL III QUICK STREP OFFICE VISIT/EST LEVEL III OFFICE VISIT/EST LEVEL III QUICK STREP IMMUNIZATION ADM/SNGL Flu Quad; INJ;Pres Free; 3+ Yrs (C) EXMP T PREV.VISIT/EST. 5-11 YRS IMMUNIZATION ADM/SNGL Flu Quad; INJ;Pres Free; 3+ Yrs (S) OFFICE VISIT/EST LEVEL III OFFICE VISIT/EST LEVEL III OFFICE VISIT/EST LEVEL III URINE DIP OFFICE VISIT/EST LEVEL IV OFFICE VISIT/EST LEVEL III URINE DIP URINE CULTURE PREV.VISIT/NEW 5-11 YRS Advance Directives Directive Yes / No Effective Date File Name No Information Encounters Encounter Description Practice Location Reason(s) For Visit Diagnoses Date Provider Providers Copied on Encounter [facility], [address], [id number], [place] tel:[phone] [facility] No Information 3 Ariadne Holly. [address] [place], [place], [id number], [place]. tel:[phone] PREV.VISIT/E ST. -17 YRS [facility], [address] [facility] [address] [place] [address], [id number], [place] tel:[phone] [facility] Well child (chief complaint) Encntr for routine child health exam w/o abnormal findingsDieta ry counseling and surveillanceB GA pediatric, 85% to less than 95th percentile for age Aug-0 - 9 Laura Khalil. [address] [place], [place], [id number], [place]. tel:[phone] [facility], [address] [place] [address], [id number], [place] tel:[phone] [facility] No Information 9 Laura Khalil. [address] [place], [place], [id number], [place]. tel:[phone] OFFICE VISIT/EST LEVEL III [facility], [address] [place] [address], [id number], [place] tel:[phone] [facility] Chest Pain (chief complaint) Chest pain, unspecified typePalpitati onsBMI pediatric, 5th percentile to less than 85% for age Sep-0 7- 8 Laura Khalil. [address] [place], [place], [id number], [place]. tel:[phone] PREV.VISIT/E ST. 12-17 YRS [facility], [address] [place] [address], [id number], [place] tel:[phone] [facility] WCC (chief complaint) Encntr for routine child health exam w/o abnormal findingsBMI pediatric, 5th percentile to less than 85% for age Mar-10 24- 8 Laura Khalil. [address] [place], [place], [id number], [place]. tel:[phone] OFFICE VISIT/EST LEVEL III [facility], [address] [place] [address], [id number], [place] tel:[phone] [facility] Rash (chief complaint) Poison leonides dermatitisBMI pediatric, 5th percentile to less than 85% for age Brian- 3-201 8 César Averyesa. [address] [place], [address], [place]. tel:[phone] PREV.VISIT/E ST. 12-17 YRS [facility], [address] [facility] [address] [place] [address], [id number], [place] tel:[phone] [facility] WCC (chief complaint) Well adolescent visitBMI pediatric, 5th percentile to less than 85% for age Apr-0 9-201 8 Laura Khalil. [address] [place], [place], [id number], [place]. tel:[phone] OFFICE VISIT/EST LEVEL III [facility], [address], [id number], [place] tel:[phone] [facility] shoulder pain (chief complaint) Pain of right clavicleBMI pediatric, less than 5th percentile for age Apr-0 6-201 8 Janice Aleman. [address] [facility], [place], [address], [place]. tel:[phone] [facility], [address] [facility] [address] [place] [address], [id number], [place] tel:[phone] [facility] Family [facility] No Information 8 Laura Khalil. [address] [place], [place], [id number], [place]. tel:[phone] OFFICE VISIT/EST LEVEL III [facility], [address] [facility] [address] [place] [address], [id number], [place] tel:[phone] [facility] Referral (chief complaint) SnoringNightm aresDaytime somnolenceBMI pediatric, 5th percentile to less than 85% for ageModerate intermittent asthma without complication - 8 Laura Khalil. [address] [place], [place], [id number], [place]. tel:[phone] [facility], [address] [facility] [address] [place] [address], [id number], [place] tel:[phone] [facility] RACH positive 7 Laura Khalil. [address] [place], [place], [id number], [place]. tel:[phone] [facility], [address] [place] [address], [id number], [place] tel:[phone] [facility] No Information 7 Laura Khalil. [address] [place], [place], [id number], [place]. tel:[phone] OFFICE VISIT/EST LEVEL IV [facility], [address], [id number], [place] tel:[phone] [facility] Follow Up (chief complaint) Swelling of both handsElevated TSHPain in both handsPain in left handPain in both feetPain in left foot 7 Laura Khalil. [address] [place], [place], [id number], [place]. tel:[phone] OFFICE VISIT/EST LEVEL III [facility], [address] [place] [address], [id number], [place] tel:[phone] [facility] hands and feet swelling (chief complaint) Allergic rhinitis, unspecified allergic rhinitis trigger, unspecified rhinitis seasonality 7 No Information PREV.VISIT/E ST. 5-11 YRS [facility], [address] [place] [address], [id number], [place] tel:[phone] [facility] preventive exam (chief complaint) Encounter for routine child health examination without abnormal findingsHypog lycemiaConsti pation, unspecified constipation typeFatigue, unspecified type Mar-2 7 Laura Khalil. [address] [place], [place], [id number], [place]. tel:[phone] OFFICE VISIT/EST LEVEL III [facility], [address] [place] [address], [id number], [place] tel:[phone] [facility] sore throat (chief complaint) Acute pharyngitis, unspecifiedAc soboba suppurative otitis media of right ear without spontaneous rupture of tympanic membrane, recurrence not specified 7 No Information OFFICE VISIT/EST LEVEL III [facility], [address] [facility] [address], [place], [place], [id number], [place] tel:[phone] [facility] Pre Op Evaluation (chief complaint) Preoperative examinationCl osed fracture of shaft of right radius with routine healing, unspecified fracture morphology, subsequent encounter 6 César Yarbrough. [address] [place], [address], [place]. tel:[phone] [facility], [address] [facility] [address], [place], [place], [id number], [place] tel:[phone] [facility] Other dental procedure statusEncount er for dental exam and cleaning w/o abnormal findings 6 Gladys Adames. [address] [place], [place], [id number], [place]. tel:[phone] OFFICE VISIT/EST LEVEL III [facility], [address] [facility] [address], [place], [place], [id number], [place] tel:[phone] [facility] abdominal pain (chief complaint) Dysuria 6 Hunter-Oldac h DO Everardo. [address] [place], [place], [id number], [place]. tel:[phone] OFFICE VISIT/EST LEVEL [facility], [address] [place] [address] [address], [place], [place], [id number], [place] tel:[phone] [facility] sore throat (chief complaint) Acute pharyngitis, unspecified 6 Hunter-Oldac h DO Everardo. [address] [place], [place], [id number], [place]. tel:[phone] OFFICE VISIT/EST LEVEL III [facility], [address] [facility] [address], [place], [id number], [place] tel:[phone] [facility] Arm Pain (chief complaint) Forearm fracture, right, closed, with routine healing, subsequent encounter 6 No Information OFFICE VISIT/EST LEVEL III [facility], [address] [facility] [address], [place], [place], [id number], [place] tel:[phone] [facility] UTI (chief complaint) Urinary tract infection, site not specifiedDysu sami 6 No Information PREV.VISIT/E ST. 5-11 YRS [facility], [address] [facility] [address], [place], [place], [id number], [place] tel:[phone] [facility] WCC (chief complaint) Encntr for routine child health exam w/o abnormal findings 6 No Information [facility], [address] [place] [address] [address], [place], [place], [id number], [place] tel:[phone] [facility] Flu injection (chief complaint) No Information 6 No Information OFFICE VISIT/EST LEVEL III [facility], [address] [place] [address] [address], [place], [place], [id number], [place] tel:[phone] [facility] viral syndrome (chief complaint) Acute pharyngitis, unspecified 6 No Information OFFICE VISIT/EST LEVEL III [facility], [address] [place] [address] [address], [place], [place], [id number], [place] tel:[phone] [facility] ankle pain (chief complaint) Ankle pain, left 5 No Information OFFICE VISIT/EST LEVEL III [facility], [address] [place] [address] [address], [place], [place], [id number], [place] tel:[phone] [facility] Sore throat (chief complaint) No Information 5 No Information OFFICE VISIT/EST LEVEL III [facility], [address] [place] [address] [address], [place], [place], [id number], [place] tel:[phone] [facility] URI (chief complaint) No Information 5 No Information PREV.VISIT/E ST. 5-11 YRS [facility] [place], [address] [facility] [address], [place], [place], [id number], [place] tel:[phone] [facility] Family [facility] Well Child Check (chief complaint) No Information 5 No Information OFFICE VISIT/EST LEVEL III [facility] [place], [address] [facility] [address], [place], [place], [id number], [place] tel:[phone] [facility] viral syndrome (chief complaint) No Information 4 No Information OFFICE VISIT/EST LEVEL III [facility], [address] [facility] [address], [place], [id number], [place] tel:[phone] [facility] Rash (chief complaint) No Information 4 Lindsey PAC Linnea. [address] [place], [place], [facility], [place]. tel:[phone] OFFICE VISIT/EST LEVEL III [facility], [address] [facility] [address] [place] [address], [id number], [place] tel:[phone] [facility] urinary burning (chief complaint) No Information 4 No Information OFFICE VISIT/EST LEVEL IV [facility], [address] [address], [place], [place], [id number], [place] tel:[phone] [facility] Pre Op Evaluation (chief complaint) No Information 3 Bill Sykes. [address] [place], [place], [id number], [place]. tel:[phone] OFFICE VISIT/EST LEVEL III [facility], [address], [id number], [place] tel:[phone] [facility] Abdominal Pain (chief complaint) No Information 3 Lindsey PAC Linnea. [address] [place], [address], [place]. tel:[phone] PREV.VISIT/N EW 5-11 YRS [facility] [place], [address] [address], [place], [place], [id number], [place] tel:[phone] [facility] Well child - 7 Years (chief complaint) No Information 3 No Information Family History Family Member Type Diagnosis Age At Onset Problem (finding) Family history of depre ssion Problem (finding) Family history of Heart disease Mother Problem (finding) Alive and well Problem (finding) Family history of Urinary tract infections Problem (finding) Family history of sickl e cell trait Problem (finding) Family history of hyper tension Problem (finding) Family history of asthm a Problem (finding) Family history of attention deficit hyperactivity disorder Father Problem (finding) Alive and well Problem (finding) Family history of migra ine Immunizations Vaccine Date Status Comments Hep A (ped/adol, 2 dose) administered Not e: vis given ; Source: New Immunization Record Tdap (Adacel) administered Note: vis give n ; Source: New Immunization Record Meningococcal MCV4O administered Note: vi s given ; Source: New Immunization Record influenza, injectable, quadrivalent, (3 years or older) administered Source: New Immuniza tion Record Flu Quad 6809-1830 (PF) 3 an d up administered Note: VIS Given ; So urce: New Immunization Record Flu (preservative free) 3yrs or older (Single vial or 0.5PFS administered Source: New Immunization Record poliovirus vaccine, inactivated administe red Source: Other Provider MMRV administered Source: Other P rovider diphtheria, tetanus toxoids and acellular pertussis vaccine administered Source: Othe r Provider Hep A (ped/adol, 2 dose) administered Radha rce: Other Provider diphtheria, tetanus toxoids and acellular pertussis vaccine administered Source: Othe r Provider MMRV administered Source: Other P rovider poliovirus vaccine, inactivated administe red Source: Other Provider pneumococcal conjugate vacci ne, 13 valent administered Source: Other Provid er Haemophilus influenzae type b vaccine, conjugate unspecified formulation administered Source: Other Provid er hepatitis B vaccine, pediatr ic or pediatric/adolescent dosage administered Source: O ther Provider diphtheria, tetanus toxoids and acellular pertussis vaccine administered Source: Othe r Provider poliovirus vaccine, inactivated administe red Source: Other Provider Pneumococcal conjugate PCV 13 administere d Source: Other Provider Haemophilus influenzae type b vaccine, conjugate unspecified formulation administered Source: Other Provid er diphtheria, tetanus toxoids and acellular pertussis vaccine administered Source: Othe r Provider polio, inactive administered Source: Othe r Provider Hib Use for Historical administered Sourc e: Other Provider hepatitis B vaccine, pediatr ic or pediatric/adolescent dosage administered Source: O ther Provider DTaP administered Source: Other P rovider Hep B, adolescent or pediatr ic, 3 dose administered Source: Other Provid er Payers Payer name Insurance type Covered republican ID Authoriza tion(s) [employer] Medicaid CI [id number] [facility] [id number] [employer] Medicaid CI [id number] [facility] [id number] [employer] Medicaid CI [id number] [facility] [id number] Social History Type Description Quantity Date Captured Comments Alcohol Use Details Unknown Caffeine Use Details Unknown Tobacco Use Status No Information Smoking Status No Information Sex Female Sexual Orientation Straight or heterosexual Apr Gender Identity Female Chief Complaint And Reason For Visit No Information Reason For Referral Reason For Referral No Information Plan Of Treatment Date Type Action Status Goal Colonoscopy. Due on 023 due Goal Pneumovax. Due on 0 due Goal HIV Screen. Due on 23 due Goal Tdap. Due on due Goal Influenza vaccine. Due on due Goal Prevnar due Goal Influenza vaccine. Due on due Goal Tdap. Due on due Goal Pneumovax due Goal Dietary management education , guidance, and counseling completed Goal Pneumovax due Goal Influenza vaccine. Due on due Goal Prevnar due Goal Tdap. Due on due Goal Pneumovax due Goal Prevnar due Goal Tdap. Due on due Goal Influenza vaccine. Due on due Goal Influenza vaccine. Due on due Goal Prevnar due Goal Pneumovax due Goal Tdap. Due on due Goal Depression screening. Due on due Goal HPV (1st). Due on 8 due Goal Depression screening. Due on due Goal HPV (1st). Due on 8 due Goal Depression screening. Due on due Goal HPV (1st). Due on 8 due Goal HPV (1st). Due on 7 due Goal HPV (1st). Due on 7 due Goal HPV (1st). Due on 7 due Goal HPV (1st). Due on 7 due Goal HPV (1st). Due on 7 due Goal HPV (1st). Due on 7 due Goal Tdap. Due on due Goal HPV (1st). Due on 6 due Goal HPV (1st). Due on 6 due Goal HPV (1st). Due on 6 due Goal HPV (1st). Due on 6 due Goal HPV (1st). Due on 6 due Referral Referred To: [facility] [address] [place] [address], [id number] Ordered: Referrals: [facility]. Evaluate and treat ordered Referral Ordered: CLAVICLE XRAY Right ordered Referral Referred To: [facility] [address] [place] [address], [id number] Ordered: Referrals: [facility]. Evaluate and treat ordered Referral Referred To: nebulizer with tubing and mouthpiece Ordered: Referrals: nebulizer with tubing and mouthpiece ordered Referral Referred To: [facility] [address] [place] [address], [id number] Ordered: Referrals: [facility]. Evaluate and treat ordered Referral Ordered: CHEST X-RAY/2 VIEWS ordered Referral Ordered: -ENT ordered History Of Present Illness Encounter Date Complaint History Of Prese nt Illness Well child (comments) here for w ell adolescent check.will be in 8th grade at [employer]. does well in school. on [employer] roll. plays [employer] in the band. no sports currently. no bullying anymore after mom addressed racism at school.eats mostly junk food. avoids fruits/veggies. eats mostly meat and carbs. drinks water and soda. last dental visit was about a year ago.menarche at age 13, menses occur irregularly. gets a lot screen time during the summer but restrictions during the school year. spends time outside. ALEXANDRO is well-controlled.wears glasses when she is doing her schoolwork. Well child Chest Pain (comments) Here for e valuation of chest pain and skipped beats. Has been told she had a murmur in the past and something wrong with one of her valves but nothing to be concerned about. for the past year, has had spells where her chest hurts and skips a beat, after which she feels tingly and weird. Spells happen about once per day for the past 1-2 weeks. Also gets short of breath. Last 10-15 minutes. Has anxiety issues and sometimes these spells happen when she is in loud crowded places but other times, also happens when she is relaxing at home. After spell resolves, feels wiped out for the rest of the day. Biological father had a mild heart attack at age 27, grandparents from heart issues in their 40s and 50s. Patient's mother would like for her to not participate in gym class for awhile until this gets figured out. Chest Pain The patient pres ents with a complaint of Chest Pain. [facility] (comments) Here for well-ch ild check. Will be in 7th grade at [employer], gets straight As. Is in cheerleading. Just fractured her growth plate in her left ankle. is no longer seeing rheumatology because they wanted to treat her with low-dose MTX but parents wanted to first try something more holistic. Takes meloxicam for joint pain which does work fairly well. Pain much worse on certain days. Has also tried limiting gluten from her diet without much difference. is a very picky eater; avoids healthy foods. Does drink milk. Drinks soda infrequently. Does not take a vitamin. Menarche within the past month. Does not have a boyfriend. Spends most of her time on her phone/tablet. [place] to fish this summer. Also has a pool and a trampoline. Gets 8-12 hours of sleep at night.Had an eye exam in September 2017 and got new glasses then. Rash The patient pres ents for Rash. This episode has lasted 4 Days. The symptom(s) are described as moderate and occurs seasonally. Affected area(s) include both legs. The symptoms are not relieved by topical steroids. Associated symptoms include urticaria. Additional information: Has used hydrocortisone cream without relief. Is spreading daily. Patient is very allergic to poison leonides and was camping over the weekend. [facility] Pt here for WCC/ physical for sports for school. pt would like refill on inhaler with a spacer. [facility] (comments) Here for WCC and sports physical.Recently made the cheerleading squad so needs sports physical. Has asthma which is mild intermittent, uses inhaler very infrequently. Heart murmur has been evaluated in the past and is not a problem. Also has juvenile arthritis which affects mostly her hands and feet. Also has Raynaud's associated with this. See continuous improvement facilitator at [facility]. Takes meloxicam for joint pain; does not need this every day.Is currently in 6th grade, does well in school. Has receptive hearing loss issues and is on the honor roll. Denies bullying. Has not had menarche yet. Mom did not have menarche until age 14. shoulder pain (comments) right s houlder clavicle pain for the past 2 days. Is involved in cheerleading but doesn't remember anything specific causing the pain. Has been taking meloxicam and ibuprofen (alternating) this week. 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 Also, using some ice. shoulder pain Location: should er. Referral (comments) Here request ing order for sleep study. Thrashes around in the middle of the night, feels not refreshed when wakes up, even if has slept for 10 hours or more. Has a regular sleep schedule. Gets at least 8 hours of sleep at night. Has morning headaches. Does not wae up in the middle of the night. Does snore at night. Sees a counselor at [facility] who recommended a sleep study to evaluate these problems.Needs a new nebulizer to use with her albuterol solution. Uses several times per month. Referral pt here for refe rral for sleep study. [facility].. Follow Up (comments) Here for fo llow up to last visit. Labs were checked at that time and TSH found to be elevated. For the past few weeks, has had some swelling of hands and feet. Gets one can of soda per day but otherwise drinks water. Previously urinated twice dialy, now only goes one. Says that urine is very dark. No abdominal pain. When she has swelling in her hands and feet, she also has pain in the joints of hands and feet. No known family history of RA, lupus, etc.No family history of thyroid issues. Follow Up pt here for foll ow up on thyroid function. pt states that last week noticed hands and feet were swelling. hands and feet swelling Noticed 4 days ago that both were swollen for a short peroid of time. Then were better. Then occurred off and on since then. It is painful to paitient when they are swollenHas history of hands and feet swelling after eating salty foods, but paitent denies eating salty foods in last 4 days. Has history of allergies in the spring as well. ff preventive exam (comments) Here for well-child check.Mother worried about celiac disease. Patient gets hypoglycemic at school. Mother thinks that patient has gluten intolerance because she feels horrible after eating mac/cheese. Says that hamburger and chicken patties cause constipation/fatigue/tiredness. Has ongoing issues with constipation. Eats a Fiber One bar each day to help keep bowels regular. Usually has a BM once daily but is very large and hard, sometimes associated with bleeding. Mom also says that when patient gets very hot during cheerleading, her heart races and the color drains from her body." Mother says that she does stay well-hydrated. Has family history of diabetes in multiple family members. Also has diabetes and Crohn's disease on father's side of family. In fifth grade. has receptive learning disorder and dyslexia and is on the honor roll. No IEP at school. Loves math. Wants to be a skelton or a backup operator. Does cheerleading. Does get some screen time but loves being outside on her trampoline and riding her skateboard. Likes junk food. Has always been a picky eater. Will not eat fruits/veggies. Eats mostly mac/cheese, pizza, tacos, hamburger helper. Drinks mostly water. Does not take vitamins. Has anxiety and has had panic attacks in the past. Sees a counselor to work on this. preventive exam Currently pregna nt: no. Patient is not contemplating . Her menses is absent. She does not take calcium. She does not take Vitamin D. She does not take multivitamins. She does not take Folic acid. Additional information: pt here for physical. pt mother wants to know if pt can be checked for celiac disease. sore throat Onset: 1 week ag o. It occurs persistently. The problem has become gradually worse. Associated symptoms include cough, fever, nasal congestion, rhinitis and sore throat. Additional information: 101 temp over weekend. Pre Op Evaluation Pt here today for a pre op exam and is having having R arm pin removal on Sep 19 at [facility] with Dr Clancy @ fax # [phone]. Fracture radius and ulna in March - has internal fixation tracey. No history of problems with anesthesia. No history of problems with bleeding. abdominal pain (comments) 2 wks ago thought UTI, had dysuria, waited for a day and the pain stopped, yesterday she had a bad smell with urination and noted that it seemed to be vaginal, no mense yet, Not achieved menarche. she did a sitz bath yesterday and that helped, less dysuria today. abdominal pain Onset: 1 Week. T he location is right lower quadrant and left lower quadrant. Associated symptoms include back pain, constipation and vaginal discharge. Pertinent negatives include diarrhea, fever, nausea and vomiting. sore throat Onset: 2 days ag o. There is no cough present. The problem has become gradually worse. Associated symptoms include nasal congestion, post-nasal drainage, rhinorrhea and sore throat. Pertinent negatives include cough and fever. Additional information: pt here today for sore throat. pt states it started 2 days ago and there is 2 girls on her cheerleading team that had strep. Arm Pain Additional infor mation: Pt having right arm pain due to broken bones in the arm that happened 2 days ago, pt is having pain in the arm and is going to get a cast on thursday, they had to sedate her with ketamine. UTI Onset: 1 week ag o. The patient describes it as cramping, dribbling and. Additional information: pt here for possible UTI. pt states when she has to go she has to go now or she will pee her pants.. [facility] Pt here today fo r a 10 year well check, mom wanting to discuss weight, breast hurts, tummy hurts, cranky for a couple of days and angry or crying, mom wanting to discuss puberty. Flu injection viral syndrome The symptoms beg an 3 days ago. Additional information: Since thursday pt having sore throat, body aches, no appetite, fatigue and headache, pt not having a fever at this time, pt having a dry cough, pt also needing refill on allergy meds; small amount of diarrhea; no sick contacts. ankle pain Onset: 2 days ag o. Location: left ankle. Additional information: pt here today to follow up from ER visit on 07/15 for ankle pain. Sore throat Onset: 4 Days ag o. Associated symptoms include headache. Pertinent negatives include chills/rigors, cough, fever, nasal congestion and postnasal drainage. Additional information: Pt has sore throat, swelling, throat is red. URI Onset: 2 days ag o. The patient's mother describes the cough as dry, hacking and non-productive. Associated symptoms include chills, cough, fatigue, fever, nasal congestion, post-nasal drainage and sore throat. Pertinent negatives include dyspnea, dyspnea on exertion, hoarseness, sinus pressure and wheezing. Additional information: Had low grade fever yesterday and today fever 103. Pt stated her chest hurt and she had a breathing treatment today at 1030. Pt having body aches and states she is really weak will not eat and drinking just a little. There is a stomach but at school and strep going around. Well Child Check Patient present s today with dad for [facility] 9year. Patient mom has concerns with weight % on growth chart. States has had 1 Asthma flare up in past 6 months. Wants patient to have flu shot. [employer] 3rd grade; good grades viral syndrome Additional infor mation: h/o asthma and was wheezing today; thinks maybe pt has resp illness causing wheezing that has been going around. Rash Additional infor mation: Pt's mother states daughter has poison leonides on numerous areas of her daughter's body. The area is red, raised and itches. Has had it for 3 days now. Functional Status Date Functional Assessmen t No Information Instructions Date Instruction Additional Infor tseringion Exercises education, guidance, and counseling Related to Dietary counseling and surveillance Dietary management e ducation, guidance, and counseling Related to Dietary counseling and surveillance take prednisone as prescribed Re lated to Poison leonides dermatitis use caladryl lotion Related to P oison leonides dermatitis Take benadryl Related to Poiso n leonides dermatitis Have x-rays done at [facility]. We'll call with results. You may continue cheerleading practice as long as you aren't in pain.Use ice as needed. You may take your meloxicam or ibuprofen for pain. Related to Pain of right clavicle No noticable swellin g of hands or feet, but could be occurring related to allergies and a histamine response. Limit salt intake and to PCP for blood work to make sure no other issues causing problems. Related to Allergic rhinitis, unspecified allergic rhinitis trigger, unspecified rhinitis seasonality meds as prescribed Related to Ac [place] suppurative otitis media of right ear without spontaneous rupture of tympanic membrane, recurrence not specified Tylenol/Motrin as needed Related to Acute suppurative otitis media of right ear without spontaneous rupture of tympanic membrane, recurrence not specified Increase fluids, res t, return to office if no better/worse Related to Acute suppurative otitis media of right ear without spontaneous rupture of tympanic membrane, recurrence not specified low risk surgery, lo w clinical predictor Related to Preoperative examination may proceed without further risk stratification Related to Preoperative examination fluids rest tylenol Related to A cute pharyngitis, unspecified Oral Health Discussed (9-10 year s) Related to Encntr for routine child health exam w/o abnormal findings Age appropriate safe ty discussed (9-10 years) Related to Encntr for routine child health exam w/o abnormal findings Age approriate antic ipatory guidance discussed (9-10 years) Related to Encntr for routine child health exam w/o abnormal findings viral syndrome; blan d diet, adat; brat diet prn Related to Acute pharyngitis, unspecified unlikely to be fx; s ee peds ortho in 3 days; sierra wrap and shoe Related to Ankle pain, left Age approriate antic ipatory guidance discussed (9-10 years) Related to Routine infant/child health Ck Over 28 Days Old Age appropriate diet discussed (9-10 years) Related to Routine infant/child health Ck Over 28 Days Old Age appropriate safe ty discussed (9-10 years) Related to Routine /child health Ck Over 28 Days Old Oral Health Discussed (9-10 year s) Related to Routine infant/child health Ck Over 28 Days Old use cream as directed Related to Poison leonides dermatitis Take medication as directed Rela michael to Poison leonides dermatitis Will check Chest x-r ay to make sure lungs are clear prior to surgery. Related to Wheezing albuterol HFA 2 puff s Q4-6 hours as needed for wheezing. Related to Wheezing Encourage fluids Related to UTI (lower urinary tract infection) Take abx as instructed Related t o UTI (lower urinary tract infection) Will call with cultu re results in 2-3 days Related to UTI (lower urinary tract infection) Assessments Type Assessment Date No Information Patient Care Teams Name Effective Dates (start - stop) Status Members No Information
[2025-05-23] VITALS (10 sets, daily range): BP systolic 98–118; BP diastolic 65–90; PULSE 62–74; RESP 13–25; TEMP 37; O2SAT 98–100; BMI 28.6
--- OUTSIDE RECORDS SUMMARY | 2025-05-23 09:16 | XMS_ITS | Clinical Summary ---
Author Organization [facility] Address [address], [address] [place] [address] Care Team Providers Care Client Support Associate Name Role Phone Simran Sanchez MD Primary Care Provider [phone] Allergies Active Allergy Reactions Criticality Noted Date Comments Morphine 01/08/2022 Medications No known medications Social History Tobacco Use Types Packs/Day Years Used Date Smoking Tobacco: Never Passive Smoke Exposure: Yes Smokeless Tobacco: Never Tobacco Cessation:Counseling Given: Not Answered Alcohol Use Standard Drinks/Week Comments No 0 (1 standard drink = 0.6 oz pur e alcohol) AUDIT-C Answer Date Recorded Q1: How often do you have a drink containing alcohol? Never 04/07/2023 Q2: How many drinks containi ng alcohol do you have on a typical day when you are drinking? Patient does not drink Q3: How often do you have si x or more drinks on one occasion? Never 04/07/2023 Interpersonal Safety Domain Source: IP Abuse Scr eening Answer Date Recorded Read-Only, Retired: Physical Abuse Denies 04/07/2023 Read-Only, Retired: Verbal Abuse Denies 04/07/2023 Read-Only, Retired: Emotional abuse Denies 04/07/2023 Read-Only, Retired: Financial Abuse Denies 04/07/2023 Read-Only, Retired: Sexual abuse Denies 04/07/2023 Comments No Sex and Gender Information Value Date Recorded Sex Assigned at Not on file Legal Sex Female 10:51 PM EDT Gender Identity Not on file Sexual Orientation Not on file Last Filed Vital Signs Vital Sign Reading Time Taken Comments Blood Pressure 126/77 04/07/2023 11:51 PM EDT Pulse 103 04/07/2023 11:51 PM EDT Temperature 36.9 C (98.4 F) 04/07/2023 11:51 PM EDT Respiratory Rate 16 04/07/2023 11:5 1 PM EDT Oxygen Saturation 99% 04/07/2023 11: 51 PM EDT Inhaled Oxygen Concentration - - Weight 74.2 kg (163 lb 9.6 oz) 04/07/20 11:51 PM EDT Height 167.6 cm (5' 6 ) 04/07/2023 11:5 1 PM EDT Body Mass Index 26.41 04/07/2023 11:51 PM EDT Body Mass Index Percentile 88.31% 04/07 11:51 PM EDT Growth Chart: CDC (Girls, 2- 20 Years) Plan of Treatment Health Maintenance Due Date Last Done Comments Depression Screen 2017 HIV screen 2020 HPV vaccine (1 - 3-dose series) 2020 Chlamydia/GC screen 2021 Meningococcal B vaccine (1 of 2 - Standard) 2021 Hepatitis C screen 2023 COVID-19 Vaccine ( - season) 2024 Flu vaccine (#1) 04/21/2025 07/12/2019, , 05/30/2009, Additional history exists DTaP/Tdap/Td vaccine (8 - Td or Tdap) 04/12/2030 04/12/2020, 04/12/2018, 11/13/2009, Additional history exists Hepatitis B vaccine Completed 09/09/2006, 2005, 2005 Hib vaccine Completed 09/09/2006, 01/19, 2005 Pneumococcal 0-49 years Vaccine Aged Out 02/17/2008, 09/09/2006, 01/28/2006 No longer eligible based on patient's age to complete this topic Measles,Mumps,Rubella (MMR) vaccine Discontinued 11/13/2009, 10/15/2006 Polio vaccine Completed 11/13/2009, 08/22, 01/28/2006, Additional history exists Varicella vaccine Completed 11/13/2009, 10/15/2006 Hepatitis A vaccine Completed 04/12/2018, 8 Meningococcal (ACWY) vaccine Aged Out 04/12/2020, 04/12/2018 No longer eligibl e based on patient's age to complete this topic Insurance [facility] Care Teams Client Support Associate Relationship Specialty Start Date End Date Simran Sanchez MD PCP - General 02/15/18
--- OUTSIDE RECORDS SUMMARY | 2025-05-23 09:16 | XMS_ITS | Clinical Summary ---
Author Organization [facility] Address [address] [place] [address] Care Team Providers Care Thumb Sewer Name Role Phone Pcp, No Primary Care Provider Unavailabl e Allergies Active Allergy Reactions Criticality Noted Date Comments Morphine Hives,Swelling High 01/07/2022 Medications oxyCODONE (Roxicodone) 5 MG immediate release tablet Take 1 tablet (5 mg) by mouth every 6 (six) hours if needed for moderate pain or severe pain. 5 tablet 04/26/2024 Active ketorolac (Toradol) 10 MG tablet Take 1 tablet (10 mg) by mouth every 6 (six) hours if needed for moderate pain. 20 tablet 04/26/2024 Active Social History Tobacco Use Types Packs/Day Years Used Date Smoking Tobacco: Never Assessed Comments Unknown Sex and Gender Information Value Date Recorded Sex Assigned at Not on file Legal Sex Female 7:45 PM EDT Gender Identity Not on file Sexual Orientation Not on file Last Filed Vital Signs Vital Sign Reading Time Taken Comments Blood Pressure 113/77 04/26/2024 4:05 AM EDT Pulse 57 04/26/2024 4:05 AM EDT Temperature 36.7 C (98 F) 04/26/2024 4:05 AM EDT Respiratory Rate 18 04/26/2024 4:05 AM EDT Oxygen Saturation 96% 04/26/2024 4:05 AM EDT Inhaled Oxygen Concentration - - Weight 73.9 kg (163 lb) 04/25/2024 7:50 PM EDT Height - - Body Mass Index - - Plan of Treatment Health Maintenance Due Date Last Done Comments [facility]-Depression Screening 2005 [facility]-HIV Screening 2005 [facility]-Hepatitis C Screening 2005 [facility]-Infant/Child/Adol SDOH Screenings 2005 Fluoride Varnish 05/04/2006 [facility]-IPV Vaccines (2 of 3 - 4-dose series) 12/11/2009 11/13/2009 [facility]- SDOH Screenings 2023 [facility]-Adult SDOH Screenings 2023 HPV Vaccines (2 - 3-dose series) 12/29/2023 12/01/2023 [id number] Vaccine (1 - 2023- season) 2024 [facility]Y-Hepatitis B Vaccines (1 of 3 - 19+ 3-dose series) 2024 [facility]-Influenza Vaccine (#1) 2025 05/30/2009 [facility]Y-DTaP,Tdap,and Td Vaccines (4 - Td or Tdap) 04/12/2030 04/12/2020, 11/13/2009, 02/17/2008 [facility]Y-Zoster Vaccines (1 of 2) 09/03/205504/2024, 11/13/2009 [facility]-Hepatitis A Vaccines Completed 024, 04/12/2020, 02/17/2008 [facility]-Varicella Vaccines Completed 4, 11/13/2009 [facility]Y-Pneumococcal Vaccine: Pediatrics (0 to 5 Years) and At-Risk Patients (6 to 49 Years) Aged Out 12/01/2023, 02/17/2008 No longer eligible based on patient's age to complete this topic UKY-HIB Vaccines Aged Out No longer e ligible based on patient's age to complete this topic [facility]Y-Rotavirus Vaccines Aged Out No lo nger eligible based on patient's age to complete this topic Insurance Care Teams Thumb Sewer Relationship Specialty Start Date End Date Pcp, [facility] [address] [place] [address] PCP - General Family Medicine 04/26/24
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
[2025-05-23 09:39] LABS: Hematocrit 39.9 % (37.0-47.0); Hemoglobin 13.1 g/dL (12.2-16.2); Immature Granulocytes % 0.5 %; Mean Corpuscular HGB Conc 32.8 g/dL (31.8-35.4); Mean Corpuscular Hemoglobin 28.3 pg (27.0-31.2); Mean Corpuscular Volume 86.2 fl (81-99); Nucleated Red Blood Cells % 0 %; Platelet Count 294 K/mm3 (142-424); Red Blood Count 4.63 M/mm3 (4.20-5.40); Red Cell Distribution Width-SD 39.8 fL; White Blood Count 8.0 K/mm3 (4.5-13.0)
[2025-05-23] MEDS: ONDANSETRON 4MG/2ML VIAL 4 MG IV (09:45)
[2025-05-23] MEDS: 0.9 % SODIUM CHLORIDE 1000ML 1,000 ML 999 ML IV (09:45)
[2025-05-23] MEDS: MORPHINE 4MG/ML SYRINGE 4 MG IV ×2 (09:45→11:18)
[2025-05-23 09:48] LABS: Albumin Level 4.5 g/dl (3.5-5.0); Chloride 109 mmol/L (98-107); Potassium 3.9 mmoL/L (3.5-5.1); Sodium 138 mmol/L (136-145)
[2025-05-23 09:50] LABS: Blood Urea Nitrogen 10 mg/dl (7-17); Creatinine Clearance Estimated 216 mL/min (50-200); Creatinine,Serum 0.50 mg/dl (0.52-1.04); Estimated Glomerular Filt Rate 159 ml/min (>60); GFR (African American) 192 ML/MIN (>60)
[2025-05-23 09:51] LABS: Alanine Aminotransferase 11 U/L (12-78); Albumin/Globulin Ratio 1.7 (1.1-1.8); Alkaline Phosphatase 52 U/L (38-126); Anion Gap 10.9 mEq/L (5-15); Aspartate Amino Transferase 23 U/L (14-36); Bilirubin,Total 0.6 mg/dl (0.2-1.3); Calcium 9.2 mg/dl (8.4-10.2); Carbon Dioxide 22 mmol/L (22.0-30.0); Globulin 2.7 g/dL (1.3-3.2); Glucose 104 mg/dl (74-100); Total Protein,Serum 7.2 g/dl (6.3-8.2)
[2025-05-23 09:52] LABS: Lipase 42 U/L (23-300)
--- NOTE | 2025-05-23 09:54 | ECG_ITS ---
APPROVED REPORT Exam: Resting ECG HR:60 bpm ECG Measurements Heart Rate 60 AXES IL 133 P 30 QRSd 82 QRS 45 QT 382 T 39 QTc 383 Conclusion SINUS RHYTHM WITH SINUS ARRHYTHMIA NORMAL ECG UNCONFIRMED REPORT Electronically signed by : Garth Madrid, 05/25/2025 15:30:44
[2025-05-23 10:31] LABS: HCG Qualitative, Serum Negative (Negative)
[2025-05-23] MEDS: 0.9 % SODIUM CHLORIDE 50 ML VIAL IV (10:50)
[2025-05-23] MEDS: IOPAMIDOL-370 (76%);100ML BOTTLE 160 ML IV (10:50)
[2025-05-23] MEDS: SODIUM CHLORIDE 0.9% 10ML SYR (RAD ONLY) 10 ML IV (10:50)
[2025-05-23 11:07] LABS: POC Glucose,Bedside 79 gm/dL (70-110)
[2025-05-23 11:39] LABS: Activated Partial Thrombo Time 30.3 seconds (22.8-30.6); INR 1.17 (0.9-1.1); Prothrombin Time 12.8 seconds (10.1-12.5)
== END 2025-05-23 13:18 | disposition home or self-care (01) ==
PROVIDERS: Emergency Provider Student in an Organized Health Care Education/Training Program
DX: R10.9 Unspecified abdominal pain (principal); M54.2 Cervicalgia; M25.512 Pain in left shoulder; V87.7XXA Person injured in collision between other specified motor vehicles (traffic), initial encounter
CPT/HCPCS: 70450; 70496; 70498; 71045; 71275; 72125; 72128; 72131; 72170; 74174; 80053; 82962; 83690; 84703; 85025; 85610; 85730; 93005; 96361; 96374; 96375; 96376; 99285; 99291; J2270; J2405; J7030; Q9967

== ENCOUNTER 2025-09-08 08:36 | Emergency (ER) | payer OTHER, SELFPAY ==
[2025-09-08] VITALS (10 sets, daily range): BP systolic 98–119; BP diastolic 55–69; PULSE 50–89; RESP 19–20; TEMP 36.5–36.6; O2SAT 98–100; BMI 25.7
--- NOTE | 2025-09-08 08:49 | US_ITS ---
PROCEDURE INFORMATION: Exam: US Duplex Artery and Vein of the Abdominal and/or Reproductive Organs. Complete Ovaries Exam date and time: 09/08/2025 9:48 AM Age: 20 years old Clinical indication: Pelvic pain; Additional info: Sudden llq abd pain, R/O torsion TECHNIQUE: Imaging protocol: Real-time duplex ultrasound scan of the arterial and venous flow with color Doppler flow and spectral waveform analysis with image documentation. Duplex exam was performed to evaluate for torsion and other vascular conditions. COMPARISON: US TRANSVAGINAL 01/01/2025 7:51 AM FINDINGS: Right ovary/adnexa: Normal arterial and venous Doppler waveforms in the ovary. No ovarian torsion. Left ovary/adnexa: Normal arterial and venous Doppler waveforms in the ovary. No ovarian torsion. IMPRESSION: Normal ovarian arterial and venous vascular flow. No evidence ovarian torsion. PROCEDURE INFORMATION: Exam: US Pelvis, Transvaginal, Non-Obstetric Exam date and time: 09/08/2025 9:48 AM Age: 20 years old Clinical indication: Pelvic pain; Additional info: Sudden llq abd pain, R/O torsion TECHNIQUE: Imaging protocol: Real-time transvaginal pelvic (non-obstetric) ultrasound with image documentation. Transvaginal imaging was used for better evaluation of the endometrium, adnexa, and/or cervix. COMPARISON: US TRANSVAGINAL 01/02/2025 12:00 AM FINDINGS: Uterus: Uterus is normal. Endometrial stripe is normal at 7 mm. Right ovary/adnexa: Normal. No mass. Normal ovarian blood flow on color Doppler. Left ovary/adnexa: Normal. No mass. Normal ovarian blood flow on color Doppler. Urinary bladder: Urinary bladder is limited. Intraperitoneal space: No free fluid. IMPRESSION: No acute findings.
--- NOTE | 2025-09-08 08:51 | CT_ITS ---
FINAL REPORT TECHNIQUE: After the administration of intravenous contrast, axial images were obtained through the abdomen and pelvis by computed tomography. The study was performed with techniques to keep radiation dose as low as reasonably achievable, (ALARA). Individual dose reduction techniques using automated exposure control or adjustment of mA and/or kV according to the patient's size were employed. CLINICAL HISTORY: sudden LLQ abd pain COMPARISON: 05/23/2025 FINDINGS: Abdomen: The lung bases are clear. There is a lower attenuation focus in the anterior right lobe of the liver measuring 1.7 cm. The gallbladder is present. The spleen, pancreas, adrenals and kidneys appear unremarkable. The aorta is normal in caliber. There is no free fluid or adenopathy. Pelvis: The appendix is not identified. The urinary bladder is unremarkable. There is no free fluid or adenopathy. IMPRESSION: No acute intra-abdominal process. Reviewed, Interpreted and Dictated by Erik Gaona MD Transcribed by Malika Long Authenticated and [facility]
--- NOTE | 2025-09-08 08:53 | ED_ITS ---
Discharge Plan Disposition Patient Disposition: Home, Self-Care Prescriptions Prescriptions: No Action 1 mg-20 mcg (24)/75 mg (4) tablet 1 tab PO DAILY Qty: 84 4RF naproxen 500 mg tablet 500 mg PO BID PRN (Reason: pain) 7 Days Qty: 14 0RF cyclobenzaprine 5 mg tablet 5 mg PO TID PRN (Reason: muscle spasm) 5 Days Qty: 15 0RF ibuprofen 800 mg tablet 800 mg PO Q8H PRN (Reason: pain) Qty: 20 0RF Referrals Follow up/Referrals: Provider,Referral, MD [Primary Care Provider, Medical] - See instructions Activity Restrictions/Add. Instructions Additional Instructions/Restrictions: Your evaluation today did not yield any emergent medical condition on your ultrasound or your CAT scan or your lab work. Diagnostic uncertainty and it is unclear as to what exactly did cause your symptoms however no obvious emergent medical condition was identified today. Please follow-up closely with your SOCIAL SECURITY BENEFITS INTERVIEWER doctor or your primary care doctor or return to the emergency department any worsening of her symptoms. Clinical Impressions Clinical Impression: Sudden onset of severe abdominal pain Instructions Patient Instructions: DI for Acute Abdominal Pain Print Language Print Language: Indonesian Discharge ED Provider: [facility] HPI General Chief complaint: Abdominal Pain Stated complaint: abdominal pain Time Seen by Provider: 09/08/25 08:46 History of Present Illness HPI narrative: Patient is a 20-year-old female present today with sudden and severe left lower quadrant abdominal pain that started about 20 minutes prior to arrival. States that she felt lightheaded felt like she had to have a bowel movement had a low bit of diarrhea and suddenly developed the severe abdominal discomfort. Has a history from her standpoint of ovarian torsion but operative notes in December of this year demonstrated that she had a large hemorrhagic cyst that intraoperatively was not torsed and but radiographically had poor flow. She has a history of numerous ovarian cysts in the past. Denies any other bowel or urine related symptoms. Related Data Previous Rx's ?Medication ?Instructions ?Recorded ibuprofen 800 mg tablet 800 mg PO Q8H PRN pain #20 t abs 01/01/25 norethindrone 1 mg-ethinyl 1 tab PO DAILY #84 tabs estradiol 20 mcg (24)-iron 75 mg (4) tablet () cyclobenzaprine 5 mg tablet 5 mg PO TID PRN muscle spa sm 5 05/23/25 days #15 tabs naproxen 500 mg tablet 500 mg PO BID PRN pain 7 day s #14 05/23/25 tabs Allergies Allergy/AdvReac Type Severity Reaction Status Date / Time adhesive Allergy Rash Verified 05/23/25 09:30 amoxicillin Allergy Unknown Verified 01/13/25 10:05 allergy reaction hydromorphone (From Dilaudid) Allergy Difficulty Verified 01/13/25 10:05 Breathing PFSH [facility] Disclaimer: The information contained in this section may have been updated after the patient was seen, as this information can be updated by other users. Medical History Hemorrhagic cyst of left ovary Acute abdominal pain in left lower quadrant Conversion disorder Abnormal uterine bleeding Right ovarian cyst RLQ abdominal pain Abdominal pain Pelvic pain Surgical History S/P laparoscopy History of surgery on arm History of tonsillectomy Family History Other No significant family history Social History Smoking Status: Current every day smoker tobacco type: e-cigarettes alcohol intake: never substance use type: denies use current occupational status: other Travel in the last 8 weeks?: None Have you lived/traveled outside [place] in past 30 days?: No Contact w/someone who lives/traveled outside US past 30 days?: No Exposure to someone with infectious disease in past 14 days?: No Do you have a fever (greater than 100.4 F or 38 C)?: No Have you tested positive for COVID-19?: No Exposed to someone with COVID-19 in past 14 days?: No Do you have a sore throat?: No Do you have a cough?: No Do you have any weakness?: No Do you have any diarrhea?: No Are you experiencing any unusual bleeding?: No Do you have any muscle aches/pain?: No Do you have any abdominal pain?: Yes Are you experiencing loss of taste or smell?: No Other Medical History Have you received the Flu Vaccine for this season: No Have you received the Pneumonia Vaccine: No ROS Obtained: Yes All systems reviewed & no additional complaints except as documented Physical Exam General General appearance: in distress (Appears to be in obvious discomfort) Respiratory Respiratory exam: Present normal lung sounds bilaterally Cardiovascular Cardiovascular exam: Present regular rate Abdominal Exam Abdominal exam: Present soft and tenderness (Suprapubic and left lower quadrant abdominal pain with mild rebound and guarding) Neurological Exam Neurological exam: Present alert and oriented X3 Medical Decision Making Medical Records Screening: Per USPSTF and CDC recommendations, given the prevalence of disease in our region, it is our hospital?s policy to screen for HIV and viral Hepatitis for all patients aged 18 and over and those with ongoing risk factors. Emanuel Inquiry Pt receiving controlled substance: No Vital Signs: 09/08/25 08:40 09/08/25 08:54 09/08/25 09:01 Temperature 97.7 F Temperature Source Oral Pulse Rate 70 64 Pulse Rate [Left Radial] 89 Respiratory Rate 20 Blood Pressure 111/61 119/69 Blood Pressure [Right Arm] 111/61 Blood Pressure Mean Blood Pressure Mean [Right Arm] 77 02 Sat by Pulse Oximetry 99 100 99 Oxygen Delivery Method Room Air Room Air Room Air 09/08/25 09:30 09/08/25 10:47 09/08/25 11:30 Temperature Temperature Source Pulse Rate 57 L 52 L 51 L Pulse Rate [Left Radial] Respiratory Rate Blood Pressure 100/56 L 101/55 L 107/63 L Blood Pressure [Right Arm] Blood Pressure Mean 72 Blood Pressure Mean [Right Arm] 02 Sat by Pulse Oximetry 100 100 Oxygen Delivery Method Room Air Room Air 09/08/25 12:00 09/08/25 12:30 09/08/25 12:31 Temperature Temperature Source Pulse Rate 51 L Pulse Rate [Left Radial] Respiratory Rate Blood Pressure 104/55 L 98/56 L 98/56 L Blood Pressure [Right Arm] Blood Pressure Mean 65 64 Blood Pressure Mean [Right Arm] 02 Sat by Pulse Oximetry 98 Oxygen Delivery Method Lab Data Lab results reviewed: Yes I reviewed the patient's lab results. Lab Results 09/08/25 08:46: WBC 6.7, RBC 4.58, Hgb 13.3, Hct 39.2, MCV 85.6, MCH 29.0, MCHC 33.9, RDW 12.3, Plt Count 341, MPV 9.9, Neut % (Auto) 37.2, Lymph % (Auto) 53.0 H, [place] % (Auto) 7.6, Eos % (Auto) 1.0, Baso % (Auto) 0.9, Neut # (Auto) 2.5, Lymph # (Auto) 3.5, [place] # (Auto) 0.5, Eos # (Auto) 0.1, Baso # (Auto) 0.1, Sodium 137, Potassium 3.6, Chloride 105, Carbon Dioxide 21 L, Anion Gap 14.6, BUN 10, Creatinine 0.80, Estimated Creat Clear 120, Estimated GFR 91, Est GFR ( Amer) 111, Glucose 133 H, Calcium 9.6, Total Bilirubin 0.7, AST 21, ALT 15, Alkaline Phosphatase 57, Total Protein 7.6, Albumin 4.9, Globulin 2.7, Albumin/Globulin Ratio 1.8, Serum HCG, Qual Negative 09/08/25 10:45: Urine Color Yellow, Urine Appearance Clear, Urine pH 6.0, Ur Specific Lampe >= 1.030, Urine Protein Trace, Urine Glucose (UA) Negative, Urine Ketones 1+, Urine Blood Negative, Urine Nitrate Negative, Urine Bilirubin Negative, Urine Urobilinogen 1.0, Ur Leukocyte Esterase Negative, Urine RBC None, Urine WBC Occasional, Ur Squamous Epith Cells Occasional, Urine Bacteria Trace 09/08/25 08:46 09/08/25 08:46 Orders (Tests/Meds): ED MEDICATIONS Generic Name Dose Route Start Last Admin Trade Name Freq PRN Reason Stop Dose Admin Sodium Chloride 10 ml 09/08/25 10:59 09/08/25 11:00 Sodium Chloride 0.9% 10ml Syr (Rad Only) IV 10/08/25 10:58 10 ml NEEDED PRN Administration Maintain IV Site Discontinued Medications Generic Name Dose Route Start Last Admin Trade Name Freq PRN Reason Stop Dose Admin Lactated Ringer's 1,000 mls @ 999 mls/hr 09/08/25 09:00 09/08/25 10:39 Lactated Ringer's 1000 Ml Bag IV 09/08/25 10:00 Infused .Q1H1M KEI Infusion Iopamidol 75 ml 09/08/25 10:59 09/08/25 11:00 Iopamidol-370 (76%);100ml Bottle IV 09/08/25 11:00 75 ml ONCE ONE Administration Morphine Sulfate 4 mg 09/08/25 08:51 09/08/25 08:59 Morphine 4mg/Ml Syringe IV 09/08/25 08:52 4 mg ONCE ONE Administration Ondansetron HCl 4 mg 09/08/25 08:51 09/08/25 08:59 Ondansetron 4mg/2ml Vial IV 09/08/25 08:52 4 mg ONCE ONE Administration ORDERS Category Date Time Status CT abdomen pelvis w con Stat Cat Scan 09/08/25 08:51 Completed US transvaginal Stat Exams 09/08/25 08:49 Completed CBC w/Auto Diff [Complete Blood Count Auto Diff] Stat Lab 09/08/25 08:46 Completed CMP [Comprehensive Metabolic Panel] Stat Lab 09/08/25 08:46 Completed HCG Qualitative, Serum Stat Lab 09/08/25 08:46 Completed UA [Urinalysis and Microscopic] Stat Lab 09/08/25 10:45 Completed Medical Decision Narrative: Patient with above history and physical with sudden severe suprapubic left lower quadrant abdominal pain concerning for possible ovarian torsion versus ruptured ovarian cyst versus perforated viscus. She does have some localized peritonitis I think the most likely explanation is a ruptured/hemorrhagic cyst. This is consistent with the recent presentation she had several months earlier. Ovarian torsion as stated above remains on the differential we will get a ultrasound to evaluate for possible flow. Additionally get a CT scan to look into other differentials. Pain medicine nausea medicine IV fluids will be administered and will be reassessed. Reassessment 1:05 PM imaging performed specifically CT scan that I personally interpreted shows no evidence of an intra-abdominal pathology ultrasound was also performed which was unremarkable no evidence of any ovarian torsion cyst free fluid etc. No explanation for patient's symptoms labs otherwise unremarkable patient felt much better on my serial assessments unclear as to exactly what did cause her symptoms there is diagnostic uncertainty this was explained to the patient but nonetheless no emergent medical condition identified and she was much improved she was discharged in improved and stable condition room return precautions emphasized was discharged to follow-up with her primary care physician closely. Critical Care Critical Care Time Critical Care Time: No
[2025-09-08 08:57] LABS: Hematocrit 39.2 % (37.0-47.0); Hemoglobin 13.3 g/dL (12.2-16.2); Immature Granulocytes % 0.3 %; Mean Corpuscular HGB Conc 33.9 g/dL (31.8-35.4); Mean Corpuscular Hemoglobin 29.0 pg (27.0-31.2); Mean Corpuscular Volume 85.6 fl (81-99); Nucleated Red Blood Cells % 0 %; Platelet Count 341 K/mm3 (142-424); Red Blood Count 4.58 M/mm3 (4.20-5.40); Red Cell Distribution Width-SD 38.1 fL; White Blood Count 6.7 K/mm3 (4.5-13.0)
--- OUTSIDE RECORDS SUMMARY | 2025-09-08 08:57 | XMS_ITS | Clinical Summary ---
Author Organization [facility] Address [address] [place] [address] Phone Care Team Providers Care Director Park Name Role Phone Tracy Yanez MD Primary Care Provider [phone] Allergies Active Allergy Reactions Criticality Noted Date [...] ipratropium (ATROVENT) 42 mcg (0.06 %) Nasl Bypro, Non-AerosolIndi cations:Viral URI with cough 2 Sprays [...] Mass Index 27.62 03/01/2024 2:42 PM EDT Plan of Treatment Health Maintenance Due Date Last Done Comments Meningococcal B Vaccine (1 o f 2 - Standard) 2021 HPV (2 - 3-dose series) 12/29/2023 12/01/2023 Hepatitis B Vaccine (1 of 3 - 19+ 3-dose series) 2024 Annual Wellness Exam 01/18/2025 01/19/2024 COVID-19 Vaccine ( season) 2025 Influenza Vaccine (#1) 2025 07/12/2019, 2008 DTaP/TDaP/Td (4 - Td or Tdap) 04/12/2030, 11/13/2009, 02/17/2008 Pneumococcal Vaccine 0-49 Completed 12/01/2023, Goals Goal Patient Goal Type Associated Problems Recent Progress Patient-Stated? Author Maintain a healthy diet, exercise regularly and maintain an ideal body weight General No Eve Gibbs MA Insurance [facility] [id number] [facility] [id number] Care Teams Director Park Relationship Specialty Start Date End Date Tracy Yanez MD [address] [facility] [place] [address] PCP - General Family Medicine 07/13/19
--- OUTSIDE RECORDS SUMMARY | 2025-09-08 08:57 | XMS_ITS | Clinical Summary ---
Author Organization Healthcare Address [address] [place] [address] Care Team Providers Care Natural Resources Instructor Name Role Phone Pcp, No Primary Care [...] C Screening 2005 [facility]-Infant/Child/Adol SDOH Screenings 2005 [facility]-IPV Vaccines (2 of 3 - 4-dose series) 12/11/2009 11/13/2009 [facility]- SDOH Screenings 2023 [facility]-Adult SDOH Screenings 2023 HPV Vaccines (2 - 3-dose series) 12/29/2023 12/01/2023 [facility]-Hepatitis B Vaccines (1 of 3 - 19+ 3-dose series) 2024 [id number] Vaccine (1 - 2024- season) 2025 [facility]-Influenza Vaccine (#1) 2025 05/30/2009 [facility]-DTaP,Tdap,and Td [...] patient's age to complete this topic Insurance [facility] Care Teams Natural Resources Instructor Relationship Specialty Start Date End Date Pcp, [place] [address] PCP - General Family Medicine 04/26/24
[2025-09-08] MEDS: LACTATED RINGERS 1000ML 1,000 ML 999 ML IV (08:59)
[2025-09-08] MEDS: MORPHINE 4MG/ML SYRINGE 4 MG IV (08:59)
[2025-09-08] MEDS: ONDANSETRON 4MG/2ML VIAL 4 MG IV (08:59)
[2025-09-08 09:21] LABS: Chloride 105 mmol/L (98-107)
[2025-09-08 09:22] LABS: Albumin Level 4.9 g/dl (3.5-5.0); Potassium 3.6 mmoL/L (3.5-5.1); Sodium 137 mmol/L (136-145)
[2025-09-08 09:24] LABS: Blood Urea Nitrogen 10 mg/dl (7-17); Creatinine Clearance Estimated 120 mL/min (50-200); Creatinine,Serum 0.80 mg/dl (0.52-1.04); Estimated Glomerular Filt Rate 91 ml/min (>60); GFR (African American) 111 ML/MIN (>60)
[2025-09-08 09:25] LABS: Alanine Aminotransferase 15 U/L (12-78); Albumin/Globulin Ratio 1.8 (1.1-1.8); Alkaline Phosphatase 57 U/L (38-126); Anion Gap 14.6 mEq/L (5-15); Aspartate Amino Transferase 21 U/L (14-36); Bilirubin,Total 0.7 mg/dl (0.2-1.3); Calcium 9.6 mg/dl (8.4-10.2); Carbon Dioxide 21 mmol/L (22.0-30.0); Globulin 2.7 g/dL (1.3-3.2); Glucose 133 mg/dl (74-100); Total Protein,Serum 7.6 g/dl (6.3-8.2)
[2025-09-08 10:47] LABS: HCG Qualitative, Serum Negative (Negative)
[2025-09-08 10:49] LABS: Microscopic, Urine URINE MICROSCOPIC (MICROSCOPIC)
[2025-09-08] MEDS: SODIUM CHLORIDE 0.9% 10ML SYR (RAD ONLY) 10 ML IV (11:00)
[2025-09-08] MEDS: IOPAMIDOL-370 (76%);100ML BOTTLE 75 ML IV (11:00)
[2025-09-08 11:04] LABS: Color,Urine YELLOW (Yellow); Glucose,Urine (UA) Negative (Negative); Ketones,Urine 1+ (Negative); Leukocyte Esterase,Urine Negative (Negative); PH,Urine 6.0 (5.0-8.5); Protein,Urine TRACE (Negative); Specific Gravity, Urine >= 1.030 (1.005-1.030); Urobilinogen,Urine 1.0 EU/dl (0.2)
[2025-09-08 11:36] LABS: Bilirubin,Urine Negative (Negative)
[2025-09-08 12:10] LABS: Bacteria,Urine Trace /lpf; Squamous Epithelial Cell,Urine Occasional #/hpf (0-5); WBC,Urine Occasional #/hpf (0-3)
--- NOTE | 2025-09-08 12:34 | PC.NURSE ---
call made to rad for update on scan, they will check
--- NOTE | 2025-09-08 12:45 | PC.NURSE ---
anthony ashley called back and states that scan is still locked and being read
== END 2025-09-08 13:15 | disposition home or self-care (01) ==
PROVIDERS: Emergency Provider Student in an Organized Health Care Education/Training Program
DX: R10.32 Left lower quadrant pain (principal); R10.24 Suprapubic pain; F17.290 Nicotine dependence, other tobacco product, uncomplicated
CPT/HCPCS: 74177; 76830; 80053; 81001; 84703; 85025; 96361; 96374; 96375; 99285; J2270; J2405; J7120; Q9967